=== PATIENT | female | born 1965 | race Caucasian/White ===

== ENCOUNTER 2017-04-10 12:16 | Emergency (ER) | payer MEDICAID ==
[2017-04-10 12:20] VITALS: BP 153/90
[2017-04-10] MEDS ORDERED: RABIES VACCINE (PCEC)/PF 2.5 UNIT/1 ML KIT IM ONE (12:28)
[2017-04-10] MEDS ORDERED: OXYCODONE-ACETAMINOPHEN 5-325 MG TABLET PO ONE (12:28)
[2017-04-10] MEDS ORDERED: RABIES IMMUNE GLOBULIN INJ/PF 300 UNIT/2 ML SDV IM ONE (12:28)
[2017-04-10] MEDS ORDERED: ONDANSETRON 4 MG TAB.RAPDIS SL ONE (12:28)
[2017-04-10] MEDS ORDERED: DIPH/PERTUSS(ACELL)/TETANUS VAC/PF 0.5 ML SYR (>=10YO) IM ONE (12:28)
[2017-04-10] MEDS ORDERED: AMOXICILLIN TR/POT CLAVULANATE 500-125 MG TAB PO ONE (12:35)
--- NOTE | 2017-04-10 12:35 | ER Document Report ---
ED Animal Bite - General Chief Complaint: Cat Bite Stated Complaint: CAT ATTACK Time Seen by Provider: 04/10/17 12:22 Mode of Arrival: Ambulatory Information source: Patient TRAVEL OUTSIDE OF THE [place] IN LAST 30 DAYS: No - HPI Patient complains to provider of: Cat bite Location of injury: RLE Severity of injury: Bitten Onset: Other - Quality of pain: Achy, Pressure Pain Level: 4 Severity: Moderate Context of attack: "Unprovoked" attack Type of animal: Cat Appearance of animal: Unknown Notes: This 51-year-old female who presents to the emergency room complaining of Bite to the right lower leg that occurred to go, over the past 3 days it has become more red, swollen, painful, with a small amount of serous drainage, the cat was a stray and unknown to patient, patient's last tetanus shot is unknown - Related Data Allergies/Adverse Reactions: No Known Allergies Allergy (Verified 04/10/17 12:20) Past Medical History - General Information source: Patient - Social History Smoking Status: Current Every Day Smoker Family History: Reviewed & Not Pertinent Patient has suicidal ideation: No Patient has homicidal ideation: No Pulmonary Medical History: Denies: Hx Tuberculosis Neurological Medical History: Reports: Hx Seizures Endocrine Medical History: Reports: Hx Diabetes Mellitus Type 2, Hx Hypothyroidism Renal/ Medical History: Denies: Hx Peritoneal Dialysis GI Medical History: Reports: Hx Ulcer Psychiatric Medical History: Reports: Hx Anxiety, Hx Depression Past Surgical History: Reports: Hx Appendectomy, Hx Cholecystectomy, Hx Tubal Ligation - Immunizations Hx Diphtheria, Pertussis, Tetanus Vaccination: Yes Hx Pneumococcal Vaccination: 07/17/14 Review of Systems - Review of Systems Constitutional: No symptoms reported EENT: No symptoms reported Cardiovascular: No symptoms reported Respiratory: No symptoms reported Gastrointestinal: Nausea Genitourinary: No symptoms reported Female Genitourinary: No symptoms reported Musculoskeletal: No symptoms reported Skin: See HPI Hematologic/Lymphatic: No symptoms reported Neurological/Psychological: No symptoms reported -: Yes All other systems reviewed and negative Physical Exam - Vital signs Vitals: Temp Pulse Resp BP Pulse Ox 97.7 F 99 22 H 153/90 H 99 04/10/17 12:18 04/10/17 12:18 04/10/17 12:18 04/10/17 12:18 04/10/17 12:18 - Notes Notes: - General General appearance: Appears well, Alert In distress: None - HEENT Head: Normocephalic, Atraumatic Eyes: Normal Conjunctiva: Normal Extraocular movements intact: Yes Eyelashes: Normal Pupils: PERRL - Respiratory Respiratory status: No respiratory distress - Cardiovascular Rhythm: Regular - Abdominal Inspection: Normal - Back Back: Normal - Extremities General upper extremity: Normal inspection General lower extremity: Right lower extremity with erythema and swelling on the lateral portion just proximal to the ankle, tender to palpate, small amount of serous drainage coming from puncture wound centrally located, mild swelling over the lateral malleolus, distal sensation and motor is intact with 2+ DP pulses - Neurological Neuro grossly intact: Yes Orientation: AAOx4 [place] Coma Scale Eye Opening: Spontaneous [place] Coma Scale Verbal: Oriented Laurita Coma Scale Motor: Obeys Commands [place] Coma Scale Total: 15 - Psychological Associated symptoms: Normal affect, Normal mood - Skin Skin Temperature: Warm Skin Moisture: Dry Skin Color: Normal Course - Re-evaluation Re-evalutation: 04/10/17 12:56 It was provided with pain medication, antibiotics, rabies vaccine and immunoglobulin, as well as information for follow-up and wound care, patient was given a schedule of nursing visits to come back for completion of rabies vaccination series, advised to return if symptoms worsen, patient acknowledges understanding and agreement with this plan - Vital Signs Vital signs: Temp Pulse Resp BP Pulse Ox 97.7 F 99 22 H 153/90 H 99 04/10/17 12:18 04/10/17 12:18 04/10/17 12:18 04/10/17 12:18 04/10/17 12:18 Discharge - Discharge Clinical Impression: Cat bite of right lower leg Qualifiers: Encounter type: initial encounter Qualified Code(s): S81.851A - Open bite, right lower leg, initial encounter; W55.01XA - Bitten by cat, initial encounter Condition: Stable Disposition: HOME, SELF-CARE Instructions: Animal Bites ([facility]), Rabies Prophyllaxis ([facility]), Dressing Instructions for Open Wounds ([facility]), Wound Infection ([facility]), Oral Narcotic Medication ([facility]) Additional Instructions: Follow up with your primary care provider in one to 2 days. Return to the emergency room immediately if symptoms worsen or any additional concerns. Wound clean and covered. Rinsed twice a day with warm water and soap, apply antibiotic ointment and a clean dressing. Return to the emergency room for completion of rabies series vaccinations as directed. Prescriptions: Amox Tr/Potassium Clavulanate [Augmentin 875-125 Tablet] 1 tab PO BID #20 tablet Hydrocodone/Acetaminophen [Hydrocodon-Acetaminophen 5-325] 1 each PO Q6 #20 tablet Forms: Smoking Cessation Education
== END 2017-04-10 13:19 | disposition home or self-care (01) ==
LOC: ER 12:16
DX: S81.851A Open bite, right lower leg, initial encounter (principal); W55.01XA Bitten by cat, initial encounter; Z20.3 Contact with and (suspected) exposure to rabies; F17.200 Nicotine dependence, unspecified, uncomplicated; E11.9 Type 2 diabetes mellitus without complications; E03.9 Hypothyroidism, unspecified; Z90.49 Acquired absence of other specified parts of digestive tract; Z98.51 Tubal ligation status; Z23 Encounter for immunization
CPT/HCPCS: 99283; 96372; 90471; 90675; 90376; J3490; S0119

== ENCOUNTER 2017-09-07 15:04 | Emergency (ER) | payer MEDICAID ==
[2017-09-07] MEDS ORDERED: ONDANSETRON HCL INJ/PF 4 MG/2 ML SDV IV ONE (15:49)
[2017-09-07] MEDS ORDERED: NORMAL SALINE 1000 ML 1,000 ML IV ONE (15:49)
--- NOTE | 2017-09-07 15:50 | ER Document Report ---
ED Medical Screen (RME) - General Chief Complaint: Chest Pain Stated Complaint: CHEST PAIN Time Seen by Provider: 09/07/17 15:48 Notes: pt said she had OH with stent about 20yrs ago. Now has n,v and cp that started this am. states it feels very similar to previous OH pain. TRAVEL OUTSIDE OF THE U.S. IN LAST 30 DAYS: No - Related Data Allergies/Adverse Reactions: No Known Allergies Allergy (Verified 09/07/17 15:09) Past Medical History - Social History Frequency of alcohol use: None Drug Abuse: None - Past Medical History Cardiac Medical History: Reports: Hx Heart Attack Pulmonary Medical History: Denies: Hx Tuberculosis Neurological Medical History: Reports: Hx Seizures - History Endocrine Medical History: Reports: Hx Diabetes Mellitus Type 2 - Diet Controlled, Hx Hypothyroidism Renal/ Medical History: Denies: Hx Peritoneal Dialysis GI Medical History: Reports: Hx Ulcer Psychiatric Medical History: Reports: Hx Anxiety, Hx Depression - History Past Surgical History: Reports: Hx Appendectomy, Hx Cardiac Catheterization - Stent Placement, Hx Cholecystectomy, Hx Tubal Ligation - Immunizations Hx Diphtheria, Pertussis, Tetanus Vaccination: Yes Physical Exam - Vital signs Vitals: Temp Pulse BP Pulse Ox 98.0 F 103 H 154/87 H 98 09/07/17 15:10 09/07/17 15:10 09/07/17 15:10 09/07/17 15:10 Course - Vital Signs Vital signs: Temp Pulse Resp BP Pulse Ox 98.0 F 103 H 154/87 H 98 09/07/17 15:10 09/07/17 15:10 09/07/17 15:10 09/07/17 15:10
[2017-09-07 16:18] LABS: ABSOLUTE BASOPHILS # (AUTO) 0.1 10^3/uL (0.0-0.2); ABSOLUTE LYMPHOCYTES (AUTO) 1.9 10^3/uL (0.5-4.7); ABSOLUTE MONOCYTES (AUTO) 0.5 10^3/uL (0.1-1.4); ABSOLUTE NEUT (AUTO) 11.5 10^3/uL (1.7-8.2); BASOPHILS % (AUTO) 1.1 % (0-2); HEMATOCRIT 49.6 % (36.0-47.0); HEMOGLOBIN 16.9 g/dL (12.0-15.5); HGB HCT DIFFERENCE 1.1; LYMPHOCYTES % (AUTO) 13.3 % (13-45); MEAN CORPUSCULAR HEMOGLOBIN 30.9 pg (27.0-33.4); MEAN CORPUSCULAR VOLUME 91 fl (80-97); MONOCYTES % (AUTO) 3.4 % (3-13); RED BLOOD COUNT 5.46 10^6/uL (3.72-5.28); RED CELL DISTRIBUTION WIDTH 14.5 % (11.5-14.0); SEGMENTED NEUTROPHILS % (AUTO) 82.2 % (42-78)
--- NOTE | 2017-09-07 16:23 | EKG REPORT ---
SEVERITY:- NORMAL ECG - SINUS RHYTHM : Confirmed by: Krunal Jeffrey 07-Sep-2017 16:22:47
[2017-09-07] MEDS ORDERED: MORPHINE SULFATE 10 MG/ML INJ IV ONE ×2 (16:25→19:13)
--- NOTE | 2017-09-07 16:27 | ER Document Report ---
ED General <FRANK LEVIN - Last Filed: 09/08/17 03:44> - General Mode of Arrival: Ambulatory Information source: Patient TRAVEL OUTSIDE OF THE [place] IN LAST 30 DAYS: No - HPI Onset: Other - Nausea and vomiting since 4:00 this morning, chest pain since 2 PM Onset/Duration: Persistent Quality of pain: Sharp Pain Level: 5 Associated symptoms: Chest pain, Productive cough, Nausea, Vomiting. denies: Diarrhea, Fever, Sore throat Exacerbated by: Denies Relieved by: Denies Similar symptoms previously: Yes Recently seen / treated by doctor: No <RINKU SALGADO - Last Filed: 09/08/17 14:06> - General Chief Complaint: Chest Pain Stated Complaint: CHEST PAIN Time Seen by Provider: 09/07/17 15:48 Notes: Patient presents complaining of abdominal pain with nausea and vomiting that started around 4:00 this morning. Patient states she has vomited numerous times and has been unable to keep any oral medications or liquids down today. Patient denies any diarrhea. Patient does report cough that is been occasionally productive for the past week. Patient denies any fever or urinary symptoms. Patient states that around 2 PM today she developed right-sided chest pain which prompted her visit to the ER today. Patient states that she does have a previous history of PR 20 years ago and was concerned that her symptoms felt similar to this. (RINKU SALGADO) - Related Data Allergies/Adverse Reactions: No Known Allergies Allergy (Verified 09/07/17 15:09) Past Medical History - General Information source: Patient - Social History Smoking Status: Current Every Day Smoker Frequency of alcohol use: None Drug Abuse: None Occupation: None Lives with: Family Family History: Reviewed & Not Pertinent - Past Medical History Cardiac Medical History: Reports: Hx Heart Attack, Hx Hypertension - Diet controlled Pulmonary Medical History: Denies: Hx Tuberculosis Endocrine Medical History: Reports: Hx Diabetes Mellitus Type 2 - Diet Controlled, Hx Hypothyroidism Renal/ Medical History: Denies: Hx Peritoneal Dialysis GI Medical History: Reports: Hx Gastroesophageal Reflux Disease, Hx Ulcer Musculoskeltal Medical History: Reports Hx Arthritis, Reports Other - Chronic back pain Psychiatric Medical History: Reports: Hx Anxiety, Hx Depression - History Past Surgical History: Reports: Hx Appendectomy, Hx Cardiac Catheterization - Stent Placement, Hx Cholecystectomy, Hx Tubal Ligation - Immunizations Hx Diphtheria, Pertussis, Tetanus Vaccination: Yes Hx Pneumococcal Vaccination: 07/17/14 <RINKU SALGADO - Last Filed: 09/08/17 14:06> Review of Systems - Review of Systems Constitutional: No symptoms reported. denies: Fever, Recent illness EENT: No symptoms reported Cardiovascular: Chest pain. denies: Syncope, Dizziness Respiratory: Cough Gastrointestinal: Abdominal pain, Nausea, Vomiting, Poor fluid intake. denies: Diarrhea, Black stools Genitourinary: No symptoms reported. denies: Dysuria, Flank pain Female Genitourinary: No symptoms reported Musculoskeletal: Back pain - chronic Skin: No symptoms reported Hematologic/Lymphatic: No symptoms reported Neurological/Psychological: No symptoms reported <RINKU SALGADO - Last Filed: 09/08/17 14:06> Physical Exam <FRANK LEVIN - Last Filed: 09/08/17 03:44> - General General appearance: Alert In distress: Mild - HEENT Head: Normocephalic, Atraumatic Eyes: Normal Conjunctiva: Normal Nasal: Normal Mouth/Lips: Normal Mucous membranes: Dry Pharynx: Normal Neck: Normal, Supple. No: Lymphadenopathy - Respiratory Respiratory status: No respiratory distress Chest status: Tender, Pain with cough Breath sounds: Nonproductive cough, Rhonchi Chest palpation: Tender - Right anterior chest wall tenderness with palpation - Cardiovascular Rhythm: Regular Heart sounds: S1 appreciated, S2 appreciated Murmur: No - Abdominal Inspection: Normal Distension: No distension Bowel sounds: Normal Tenderness: Tender - Epigastric, Guarding Organomegaly: No organomegaly - Back Back: Normal, Nontender. No: CVA tenderness - Extremities General upper extremity: Normal inspection, Nontender, Normal ROM General lower extremity: Normal inspection, Nontender, Normal ROM - Neurological Neuro grossly intact: Yes Cognition: Normal [place] Coma Scale Eye Opening: Spontaneous [place] Coma Scale Verbal: Oriented [place] Coma Scale Motor: Obeys Commands [place] Coma Scale Total: 15 - Psychological Associated symptoms: Normal affect, Normal mood - Skin Skin Temperature: Warm Skin Moisture: Dry Skin Color: Normal <RINKU SALGADO - Last Filed: 09/08/17 14:06> - Vital signs Vitals: Temp Pulse BP Pulse Ox 98.0 F 103 H 154/87 H 98 09/07/17 15:10 09/07/17 15:10 09/07/17 15:10 09/07/17 15:10 - General Notes: Patient cachectic looking (RINKU SALGADO) Course - Laboratory Result Diagrams: 09/08/17 00:25 09/07/17 16:01 <FRANK LEVIN - Last Filed: 09/08/17 03:44> - Laboratory Result Diagrams: 09/08/17 00:25 09/07/17 16:01 - Diagnostic Test Radiology reviewed: Reports reviewed <RINKU SALGADO - Last Filed: 09/08/17 14:06> - Re-evaluation Re-evalutation: Patient drank some of the contrast, about 1 bottle, then she vomited. She did keep down for several minutes. She states she cannot drink anymore without vomiting. Mild QT prolongation on EKG. There is one inverted lateral lead on repeat EKG but no consecutive inversions or specific ischemic changes. Patient was sent to CAT scan after [address] Davis in ED, asking about potential surgical cases, he did evaluate the patient at bedside, he did review the EKG images, his suspicion is gastritis/ peptic ulcer disease and recommendation is an endoscopy but does not recommend any surgical management at this time. Cat scan read by radiology showing periumbilical hernia with no contained bowel loops, no evidence of incarceration , no other abnormalities. Concerned because of elevated troponin, will repeat this. Patient is not having any chest pain, has intermittent epigastric pain and she did vomit again with trace blood but no gross hematemesis. Type and screen was performed, coagulation studies performed, Protonix placed on continual drip, patient has been getting fluid hydration. Troponin cycled and is now above PR cut off. Aspirin and anticoagulation held because of upper GI bleeding. Discussed with Dr. David. Discussed Dr. Soto admission to the hospital, unfortunately because of patient's rising troponin in setting of patient with history of stents recommendation is to transfer to tertiary care center. Spoke with patient, she prefers either [place] or [facility], states she lives close to [place]. Spoke with Ajay Cruz, they have a minimum of 24 hour wait time and are at maximum capacity at this time. Spoke with patient again, she states she would prefer [place]. Spoke with Dr. Mcallister, patient will be accepted at [facility]. Patient states agreement with this plan. 09/08/17 02:30 Patient reevaluated again, she is not complaining of any chest pain, she does have some intermittent epigastric and mid abdominal pain. 09/08/17 03:44 Transport is here, patient reporting to me that she no longer has her nitroglycerin paste on and it was on her right chest. I could not find it on examination. A replacement was placed. Otherwise no change, stable vital signs , stable for transport. (FRANK LEVIN) 09/07/17 17:07 Patient returned to room from x-ray. Patient states chest pain at this time is resolved although continues with epigastric tenderness. Family at bedside and updated regarding patient's care. Patient continues to complain of nausea. Nurse at bedside to administer antiemetic medication. 09/07/17 18:00 pt continues with epigastric abd pain with nausea and vomiting. Additional medications ordered. Pt reports that pain to right chest comes and goes, although epigastric pain is persistent. 09/07/17 19:14 Patient reports that chest pain has now resolved but that epigastric abdominal pain has worsened. Bedside report and handout given to Frank TAPIA. Additional medication ordered. Nurse at bedside attempting to restart IV after patient accidentally pulled IV out. (RINKU SALGADO) - Vital Signs Vital signs: Temp Pulse Resp BP Pulse Ox 98.4 F 103 H 17 141/78 H 96 09/08/17 03:45 09/07/17 15:10 09/08/17 03:45 09/08/17 03:45 09/08/17 03:45 - Laboratory Laboratory results interpreted by me: 09/07/17 09/07/17 09/07/17 16:01 16:01 17:03 WBC 14.0 H RBC 5.46 H Hgb 16.9 H Hct 49.6 H RDW 14.5 H Seg Neutrophils % 82.2 H Absolute Neutrophils 11.5 H APTT Creatinine 0.50 L Glucose 132 H Lipase 20.5 L Urine Protein 100 H Urine Ketones 20 H Urine Blood SMALL H Urine Urobilinogen 4.0 H 09/08/17 09/08/17 00:25 00:25 WBC 14.9 H RBC Hgb Hct RDW 14.2 H Seg Neutrophils % Absolute Neutrophils APTT 36.8 H Creatinine Glucose Lipase Urine Protein Urine Ketones Urine Blood Urine Urobilinogen Discharge <FRANK LEVIN - Last Filed: 09/08/17 03:44> <RINKU SALGADO - Last Filed: 09/08/17 14:06> - Discharge Clinical Impression: Upper GI bleed, Elevated troponin Intractable vomiting Qualifiers: Vomiting type: unspecified Nausea presence: with nausea Qualified Code(s): R11.2 - Nausea with vomiting, unspecified Chest pain Qualifiers: Chest pain type: unspecified Qualified Code(s): R07.9 - Chest pain, unspecified Condition: Stable Disposition: [facility]
[2017-09-07 16:37] LABS: ALANINE AMINOTRANSFERASE 22 U/L (9-52); ALBUMIN 4.2 g/dL (3.5-5.0); ALKALINE PHOSPHATASE 117 U/L (38-126); ANION GAP 16 (5-19); ASPARTATE AMINO TRANSFERASE 15 U/L (14-36); BILIRUBIN,DIRECT 0.3 mg/dL (0.0-0.4); BILIRUBIN,TOTAL 0.5 mg/dL (0.2-1.3); BLOOD UREA NITROGEN 10 mg/dL (7-20); CALCIUM 9.6 mg/dL (8.4-10.2); CARBON DIOXIDE 23 mmol/L (22-30); CHLORIDE 103 mmol/L (98-107); GLUCOSE 132 mg/dL (75-110); LIPASE 20.5 U/L (23-300); POTASSIUM 3.7 mmol/L (3.6-5.0); SODIUM 141.5 mmol/L (137-145); TOTAL PROTEIN 7.1 g/dL (6.3-8.2)
--- NOTE | 2017-09-07 17:06 | RADIOLOGY REPORT (SQ) ---
EXAM DESCRIPTION: CHEST PA/LAT COMPLETED DATE/TIME: 09/07/2017 4:57 pm REASON FOR STUDY: pain COMPARISON: Chest film 08/22/2013 EXAM PARAMETERS: NUMBER OF VIEWS: two views TECHNIQUE: Digital Frontal and Lateral radiographic views of the chest acquired. RADIATION DOSE: NA LIMITATIONS: none FINDINGS: LUNGS AND PLEURA: Lungs are hyperinflated and hyperlucent from obstructive disease. No pleural effusion. No pneumothorax. No pulmonary nodules. MEDIASTINUM AND HILAR STRUCTURES: No masses or contour abnormalities. HEART AND VASCULAR STRUCTURES: Heart normal size. No evidence for failure. BONES: Osteopenic. HARDWARE: None in the chest. OTHER: No other significant finding. IMPRESSION: Lungs hyperinflated and hyperlucent but free of focal infiltrates. TECHNICAL DOCUMENTATION: JOB ID: [id number] [employer]- All Rights Reserved
[2017-09-07] MEDS: NITROGLYCERIN 0.4 MG/TAB 25 TAB/BOTTLE SL PRN ×2 (17:27→18:30)
[2017-09-07 17:39] LABS: APPEARANCE,URINE SLIGHTLY-CLOUDY; BILIRUBIN,URINE NEGATIVE (NEGATIVE); GLUCOSE, URINE NEGATIVE (NEGATIVE); KETONES,URINE 20 mg/dL (NEGATIVE); LEUKOCYTE ESTERASE,URINE NEGATIVE (NEGATIVE); NITRITE,URINE NEGATIVE (NEGATIVE); PROTEIN,URINE 100 mg/dL (NEGATIVE)
[2017-09-07] MEDS ORDERED: NORMAL SALINE 1000 ML 1,000 ML IV PRN (17:48)
[2017-09-07] MEDS ORDERED: PROMETHAZINE HCL 25 MG SUPP.RECT PR ONE (17:48)
[2017-09-07] MEDS ORDERED: IPRATROPIUM/ALBUTEROL 0.5-2.5 MG/3 ML AMPUL NEB ONE (17:57)
[2017-09-07] MEDS ORDERED: PANTOPRAZOLE SODIUM 40 MG VIAL IV ONE (18:39)
[2017-09-07] MEDS ORDERED: NITROGLYCERIN 2% OINTMENT 1 GM PACKET TP ONE (19:12)
--- NOTE | 2017-09-08 00:01 | EKG REPORT ---
SEVERITY:- ABNORMAL ECG - SINUS RHYTHM PROLONGED QT INTERVAL : Confirmed by: Krunal Jeffrey 08-Sep-2017 00:00:49
--- NOTE | 2017-09-08 00:02 | RADIOLOGY REPORT (SQ) ---
EXAM DESCRIPTION: CT ABD/PELVIS WITH IV ORAL COMPLETED DATE/TIME: 09/07/2017 11:02 pm REASON FOR STUDY: upper abd pain, vomiting COMPARISON: 8.26.14. TECHNIQUE: CT scan of the abdomen and pelvis performed using helical scanning technique with dynamic intravenous contrast injection. No oral contrast. Images reviewed with lung, soft tissue, and bone windows. Reconstructed coronal and sagittal MPR images reviewed. Delayed images for evaluation of the urinary system also acquired. All images stored on PACS. All CT scanners at this facility use dose modulation, iterative reconstruction, and/or weight based d osing when appropriate to reduce radiation dose to as low as reasonably achievable (ALARA). [facility]: Dose Right [facility]: CareDose [facility]: Dose Right [facility]: Teradose 4D [facility]: Evolve IP CONTRAST TYPE AND DOSE: contrast/concentration: Isovue 370.00 mg/ml; Total Contrast Delivered: 51.0 ml; Total Saline Delivered: 65.0 ml RENAL FUNCTION: Creatinine 0.5 RADIATION DOSE: Up-to-date CT equipment and radiation dose reduction techniques were employed. CTDIv ol: 4.9 - 5.8 mGy. DLP: 497 mGy-cm.. LIMITATIONS: No oral contrast. FINDINGS: LOWER CHEST: No significant findings. No nodules or infiltrates. LIVER: Normal size. No masses. Prominent ductal system ; prior cholecystectomy. SPLEEN: Normal size. No focal lesions. PANCREAS: No masses. No significant calcifications. No adjacent inflammation or peripancreatic fluid collections. Pancreatic duct not dilated. GALLBLADDER: Surgically absent. ADRENAL GLANDS: No significant masses or asymmetry. RIGHT KIDNEY AND URETER: No solid masses. No significant calcifications. No hydronephrosis or hyd roureter. LEFT KIDNEY AND URETER: No solid masses. No significant calcifications. No hydronephrosis or hydr oureter. AORTA AND VESSELS: No aneurysm. No dissection. Renal arteries, SMA, celiac without stenosis. Atheros clerosis. RETROPERITONEUM: No retroperitoneal adenopathy, hemorrhage or masses. BOWEL AND PERITONEAL CAVITY: No masses or inflammatory changes. No free fluid or peritoneal masses. APPENDIX: Surgically absent. PELVIS: No mass. No free fluid. Normal bladder. ABDOMINAL WALL: No masses. 1.5 cm umbilical fat only hernia. BONES: No significant or acute findings. Moderate disc desiccation. OTHER: No other significant finding. IMPRESSION: NO SIGNIFICANT OR ACUTE FINDING IN THE ABDOMEN OR PELVIS ON CT SCAN WITH IV CONTRAST. L imitation. TECHNICAL DOCUMENTATION: JOB ID: [id number] Quality ID # [id number]: Final reports with documentation of one or more dose reduction techniques (e.g., Au tomated exposure control, adjustment of the mA and/or kV according to patient size, use of iterative reconstruction technique) 2010 [employer]- All Rights Reserved
[2017-09-08 00:43] LABS: PROTHROMBIN TIME 13.6 SEC (11.4-15.4)
[2017-09-08 00:44] LABS: PARTIAL THROMBOPLASTIN TIME 36.8 SEC (23.5-35.8)
--- NOTE | 2017-09-08 01:02 | CONSULTATION REPORT E ---
Consultation Report NAME: PATY MORLEY : 1965 AGE: 52Y DATE: 09/07/2017 TO: JOHN NAVAS M.D. FROM: BLAYNE BOYKIN M.D. Requesting Physician REASON FOR ADMISSION: Intractable nausea, vomiting, and abdominal pain. HISTORY OF PRESENT ILLNESS: This 52-year-old female was in her usual state of health until approximately 36 hours ago, when she developed diffuse midabdominal pain with intractable vomiting which was at first clear and then became bilious. This lasted for several hours, and patient then improved spontaneously and was doing well until approximately 20 hours ago, or 4:00 this morning, when she developed recurrence of her diffuse abdominal pain with intractable vomiting several times. The patient states that she had a normal bowel movement and has passed gas but has had continuous pain, nausea, and vomiting since this morning. The presented to the emergency room and was found to be in mild distress and was evaluated in the ER. On physical exam she was found to have a mildly tender abdomen with acute tenderness, but with distraction the patient was found to have no guarding or rebound. Bowel sounds were present. The patient's laboratory data was unremarkable, but her CT scan showed only a significant amount of stool in the colon, but no other significant findings on CT scan. Surgical evaluation was requested, and on physical examination in the ER by me, the patient was noted to have a nonsurgical abdomen, although she has some diffuse tenderness without guarding or rebound. There is no organomegaly or masses. My impression is that this patient may have some either gastritis and may need upper endoscopy, as she has had previous gastric ulcers in the past. The patient is to be admitted to the medicine service. PAST MEDICAL HISTORY: She has a history of cardiac stents, thyroid disorder, and hypertension. PAST SURGICAL HISTORY: The patient is status post open cholecystectomy over 20 years ago. The patient has also had an appendectomy. PHYSICAL EXAMINATION: GENERAL: Physical examination reveals a 52-year-old female who appears older than her stated age, who is fairly nervous, somewhat disheveled, who is in mild distress. HEENT: There is no conjunctival pallor or scleral icterus. NECK: Supple. LUNGS: Clear. CARDIOVASCULAR: The pulse is regular. ABDOMEN: Scaphoid with poor skin turgor, suggesting dehydration. There is diffuse tenderness but no guarding, no rebound, no rigidity, no evidence of an acute abdomen. Bowel sounds are present. EXTREMITIES: Full range of motion. LABORATORY DATA: Has been reviewed. IMPRESSION: The patient has abdominal pain with intractable nausea and vomiting that may represent gastritis. RECOMMENDATION: I recommend that the patient undergo esophagogastroduodenoscopy as part of her workup, as her CT scan has not revealed any pathology. DICTATING PHYSICIAN: JOHN NAVAS M.D. [id number] PHY#: [id number] ID: [id number] JOB#: [id number] ACCT: [id number] cc:JOHN NAVAS M.D. >
[2017-09-08] MEDS ORDERED: PANTOPRAZOLE SODIUM 40 MG VIAL IV PRN (01:25)
[2017-09-08] MEDS ORDERED: MORPHINE SULFATE 10 MG/ML INJ IV ONE (01:45)
[2017-09-08 02:14] LABS: HEMATOCRIT 41.2 % (36.0-47.0); HGB HCT DIFFERENCE 0.2; MEAN CORPUSCULAR HEMOGLOBIN 30.7 pg (27.0-33.4); MEAN CORPUSCULAR HGB CONC 33.6 g/dL (32.0-36.0); MEAN CORPUSCULAR VOLUME 92 fl (80-97); RED BLOOD COUNT 4.51 10^6/uL (3.72-5.28); RED CELL DISTRIBUTION WIDTH 14.2 % (11.5-14.0); WHITE BLOOD COUNT 14.9 10^3/uL (4.0-10.5)
[2017-09-08 02:22] LABS: HEMOGLOBIN 13.8 g/dL (12.0-15.5)
[2017-09-08] MEDS ORDERED: NITROGLYCERIN 2% OINTMENT 1 GM PACKET TP ONE (03:44)
[2017-09-08 04:43] VITALS: BP 141/78
== END 2017-09-08 04:05 | disposition short-term general hospital (02) ==
LOC: ER 15:04
DX: K92.2 Gastrointestinal hemorrhage, unspecified (principal); K42.9 Umbilical hernia without obstruction or gangrene; R07.9 Chest pain, unspecified; R74.8 Abnormal levels of other serum enzymes; R05 Cough; R10.13 Epigastric pain; R10.816 Epigastric abdominal tenderness; R11.2 Nausea with vomiting, unspecified; I25.2 Old myocardial infarction; I10 Essential (primary) hypertension; E11.9 Type 2 diabetes mellitus without complications; M54.9 Dorsalgia, unspecified; G89.29 Other chronic pain; F17.200 Nicotine dependence, unspecified, uncomplicated; Z95.5 Presence of coronary angioplasty implant and graft
CPT/HCPCS: 93005; 96376; 94640; 99285; 96361; 96375; 96365; 96366; 86900; 86901; 36415; 86850; 83690; 85025; 85027; 85610; 85730; 82271; 80053; 81001; 84484; 71020; 74177; 93010; J3490 ×4; J2270 ×2; S0164 ×2; J2405; J7030; J7620

== ENCOUNTER → 2018-01-31 | Outpatient (CLI) | payer MEDICAID ==
--- NOTE | 2018-01-31 14:44 | RADIOLOGY REPORT (SQ) ---
EXAM DESCRIPTION: CHEST PA/LAT COMPLETED DATE/TIME: 01/31/2018 2:05 pm REASON FOR STUDY: F17.200 NICOTINE DEPENDENCE, UNSPECIFIED, UNCOMPLICATED R63.4 ABNORMAL WEIG COMPARISON: 09/07/2017 EXAM PARAMETERS: NUMBER OF VIEWS: two views TECHNIQUE: Digital Frontal and Lateral radiographic views of the chest acquired. RADIATION DOSE: NA LIMITATIONS: none FINDINGS: LUNGS AND PLEURA: Inflation of the lungs, attenuated blood vessels and flattening of the diaphragms, stable findings, findings suggest COPD. No acute pulmonary consolidation. No pneumothor ax or pleural effusion. MEDIASTINUM AND HILAR STRUCTURES: No masses or contour abnormalities. HEART AND VASCULAR STRUCTURES: Heart normal size. No evidence for failure. BONES: No acute findings. HARDWARE: None in the chest. OTHER: No other significant finding. IMPRESSION: 1 No significant interval changes since the prior examination dated 09/07/2017. Finding s of COPD. No acute pulmonary findings. TECHNICAL DOCUMENTATION: JOB ID: [id number] [employer]- All Rights Reserved Reading location - IP/workstation name: [email or web address]
== END ==
LOC: RAD 13:45
PROVIDERS: ATTEND Surgery
DX: F17.200 Nicotine dependence, unspecified, uncomplicated (principal); R63.4 Abnormal weight loss; R10.9 Unspecified abdominal pain; J44.9 Chronic obstructive pulmonary disease, unspecified
CPT/HCPCS: 71046

== ENCOUNTER 2018-05-04 13:55 | Emergency (ER) | payer MEDICARE, MEDICAID ==
--- NOTE | 2018-05-04 14:37 | ER Document Report ---
ED General - General Chief Complaint: Ankle Pain Stated Complaint: KNEE/ANKLE PAIN Time Seen by Provider: 05/04/18 14:29 TRAVEL OUTSIDE OF THE [place] IN LAST 30 DAYS: No - HPI Patient complains to provider of: Right ankle right knee pain Notes: Patient coming in for evaluation of right ankle right knee pain. Patient states she fell in a hole just prior to arrival. Patient states she walked to a local urgent care who then called her. Patient is tearful upon my examination. Patient does have tennis shoes on I am able to remove the shoes with no signs of any obvious trauma patient otherwise denies - Related Data Allergies/Adverse Reactions: No Known Allergies Allergy (Verified 05/04/18 13:58) Past Medical History - Social History Smoking Status: Current Every Day Smoker Chew tobacco use (# tins/day): No Frequency of alcohol use: None Drug Abuse: None Family History: Reviewed & Not Pertinent Patient has suicidal ideation: No Patient has homicidal ideation: No - Past Medical History Cardiac Medical History: Reports: Hx Heart Attack, Hx Hypertension - Diet controlled Pulmonary Medical History: Denies: Hx Tuberculosis Neurological Medical History: Reports: Hx Seizures - History Endocrine Medical History: Reports: Hx Diabetes Mellitus Type 2 - Diet Controlled, Hx Hypothyroidism Renal/ Medical History: Denies: Hx Peritoneal Dialysis GI Medical History: Reports: Hx Gastroesophageal Reflux Disease, Hx Ulcer Musculoskeltal Medical History: Reports Hx Arthritis Psychiatric Medical History: Reports: Hx Anxiety, Hx Depression - History Past Surgical History: Reports: Hx Appendectomy, Hx Cardiac Catheterization - Stent Placement, Hx Cholecystectomy, Hx Tubal Ligation - Immunizations Hx Diphtheria, Pertussis, Tetanus Vaccination: Yes Hx Pneumococcal Vaccination: 07/17/14 Review of Systems - Review of Systems Constitutional: No symptoms reported EENT: No symptoms reported Cardiovascular: No symptoms reported Respiratory: No symptoms reported Gastrointestinal: No symptoms reported Genitourinary: No symptoms reported Female Genitourinary: No symptoms reported Musculoskeletal: Other - Ankle pain knee pain Skin: No symptoms reported Hematologic/Lymphatic: No symptoms reported Neurological/Psychological: No symptoms reported -: Yes All other systems reviewed and negative Physical Exam - Vital signs Vitals: Temp Pulse Resp BP Pulse Ox 99.2 F 101 H 18 121/83 99 05/04/18 14:14 05/04/18 14:14 05/04/18 14:14 05/04/18 14:14 05/04/18 14:14 Interpretation: Normal - General General appearance: Appears well, Alert - HEENT Head: Normocephalic, Atraumatic Eyes: Normal Pupils: PERRL - Respiratory Respiratory status: No respiratory distress Chest status: Nontender Breath sounds: Normal Chest palpation: Normal - Cardiovascular Rhythm: Regular Heart sounds: Normal auscultation Murmur: No - Abdominal Inspection: Normal Distension: No distension Bowel sounds: Normal Tenderness: Nontender Organomegaly: No organomegaly - Back Back: Normal, Nontender - Extremities General upper extremity: Normal inspection, Nontender, Normal color, Normal ROM , Normal temperature General lower extremity: Normal inspection, Tender - Tenderness palpation the proximal tibia on the anterior side almost at the tibial tuberosity. On the right. Left unaffected. Patient has diffuse tenderness to palpation of her ankle dorsalis pedis and posterior tibial are intact on the right mild edema bilateral lower extremities, Normal color, Normal ROM, Normal temperature - Neurological Neuro grossly intact: Yes Cognition: Normal Orientation: AAOx4 Laurita Coma Scale Eye Opening: Spontaneous Laurita Coma Scale Verbal: Oriented [place] Coma Scale Motor: Obeys Commands Laurita Coma Scale Total: 15 Speech: Normal Motor strength normal: LUE, RUE, LLE, RLE Sensory: Normal - Psychological Associated symptoms: Normal affect, Normal mood - Skin Skin Temperature: Warm Skin Moisture: Dry Skin Color: Normal Course - Re-evaluation Re-evalutation: 05/04/18 22:50 X-rays are negative for any acute bony injury more likely patient has possible sprain or strain patient was encouraged to use ice and heat along with Tylenol Motrin for pain control at home. Narcotic database shows the patient does monthly supply of oxycodone patient can take this for pain patient discharged home - Vital Signs Vital signs: Temp Pulse Resp BP Pulse Ox 97.5 F 85 18 114/62 98 05/04/18 15:51 05/04/18 15:51 05/04/18 15:51 05/04/18 15:51 05/04/18 15:51 Discharge - Discharge Clinical Impression: Knee pain, right Qualifiers: Chronicity: acute Qualified Code(s): M25.561 - Pain in right knee Ankle pain, right Qualifiers: Chronicity: acute Qualified Code(s): M25.571 - Pain in right ankle and joints of right foot Condition: Good Disposition: HOME, SELF-CARE Instructions: Chilo Wrap ([facility]), Ice & Elevation ([facility]), Sprained Ankle ([facility]), Sprained Knee ([facility]) Additional Instructions: Your x-rays are negative for any signs of acute fracture. Highly recommend she follow-up with your primary care physician will likely you have a knee and ankle sprain. Recommend continue your patient prescribed narcotic pain medication he may also take Tylenol and Motrin for your pain control if he received good pain relief with the lidocaine patch provided to you here in ER he can ask her pharmacist about [id number] lidocaine options. Please follow-up with your primary care physician in 3-5 days. Referrals: FAYE ANDERSON PA-C [NO LOCAL MD] - Follow up in 3-5 days
--- NOTE | 2018-05-04 15:20 | RADIOLOGY REPORT (SQ) ---
EXAM DESCRIPTION: KNEE RIGHT 3 VIEWS COMPLETED DATE/TIME: 05/04/2018 3:09 pm REASON FOR STUDY: fell in hole COMPARISON: 09/01/2011. NUMBER OF VIEWS: Three views. TECHNIQUE: AP, lateral, and sunrise patella radiographic images acquired of the right knee. LIMITATIONS: None. FINDINGS: MINERALIZATION: Normal. BONES: No acute fracture or dislocation. No worrisome bone lesions. JOINT: No effusion. SOFT TISSUES: No soft tissue swelling. No radio-opaque foreign body. OTHER: No other significant finding. IMPRESSION: NEGATIVE STUDY OF THE RIGHT KNEE. NO RADIOGRAPHIC EVIDENCE OF ACUTE INJURY. TECHNICAL DOCUMENTATION: JOB ID: [id number] [employer]- All Rights Reserved Reading location - IP/workstation name: [email or web address]
--- NOTE | 2018-05-04 15:20 | RADIOLOGY REPORT (SQ) ---
EXAM DESCRIPTION: ANKLE RIGHT COMPLETE COMPLETED DATE/TIME: 05/04/2018 3:09 pm REASON FOR STUDY: fell in hole COMPARISON: None. NUMBER OF VIEWS: Three views. TECHNIQUE: AP, lateral, and oblique radiographic images acquired of the right ankle. LIMITATIONS: None. FINDINGS: MINERALIZATION: Normal. BONES: No acute fracture or dislocation. No worrisome bone lesions. JOINTS: No effusions. SOFT TISSUES: No soft tissue swelling. No foreign body. OTHER: No other significant finding. IMPRESSION: NEGATIVE STUDY OF THE RIGHT ANKLE. NO RADIOGRAPHIC EVIDENCE OF ACUTE INJURY. TECHNICAL DOCUMENTATION: JOB ID: [id number] [employer]- All Rights Reserved Reading location - IP/workstation name: [email or web address]
[2018-05-04] MEDS ORDERED: LIDOCAINE 5% (700 MG) TRANSDERMAL ADH..PATCH TP ONE (15:36)
[2018-05-04 15:59] VITALS: BP 114/62
== END 2018-05-04 15:59 | disposition home or self-care (01) ==
LOC: ER 13:55
DX: M25.571 Pain in right ankle and joints of right foot (principal); M25.561 Pain in right knee; W17.2XXA Fall into hole, initial encounter; R60.0 Localized edema; I10 Essential (primary) hypertension; E11.9 Type 2 diabetes mellitus without complications; F17.200 Nicotine dependence, unspecified, uncomplicated; Z79.891 Long term (current) use of opiate analgesic
CPT/HCPCS: 99283

== ENCOUNTER 2018-11-24 19:39 | Emergency (ER) | payer MEDICARE, MEDICAID ==
[2018-11-24 20:43] LABS: ABSOLUTE LYMPHOCYTES (AUTO) 1.8 10^3/uL (0.5-4.7); ABSOLUTE MONOCYTES (AUTO) 0.3 10^3/uL (0.1-1.4); ABSOLUTE NEUT (AUTO) 3.7 10^3/uL (1.7-8.2); BASOPHILS % (AUTO) 0.8 % (0-2); EOSINOPHILS % (AUTO) 0.5 % (0-6); HEMATOCRIT 34.1 % (36.0-47.0); MEAN CORPUSCULAR HEMOGLOBIN 26.8 pg (27.0-33.4); MEAN CORPUSCULAR HGB CONC 32.2 g/dL (32.0-36.0); MEAN CORPUSCULAR VOLUME 83 fl (80-97); MONOCYTES % (AUTO) 4.4 % (3-13); PLATELET COUNT 274 10^3/uL (150-450); RED BLOOD COUNT 4.09 10^6/uL (3.72-5.28); RED CELL DISTRIBUTION WIDTH 16.6 % (11.5-14.0); SEGMENTED NEUTROPHILS % (AUTO) 63.3 % (42-78); TOTAL CELLS COUNTED % (AUTO) 100 %; WHITE BLOOD COUNT 5.9 10^3/uL (4.0-10.5)
--- NOTE | 2018-11-24 20:44 | RADIOLOGY REPORT (SQ) ---
EXAM DESCRIPTION: CHEST SINGLE VIEW COMPLETED DATE/TIME: 11/24/2018 8:30 pm REASON FOR STUDY: chest pain COMPARISON: None. EXAM PARAMETERS: NUMBER OF VIEWS: One view. TECHNIQUE: Single frontal radiographic view of the chest acquired. RADIATION DOSE: NA LIMITATIONS: None. FINDINGS: LUNGS AND PLEURA: Mild hyperexpansion of the lungs. No infiltrate, effusion, or mass. MEDIASTINUM AND HILAR STRUCTURES: No masses. Contour normal. HEART AND VASCULAR STRUCTURES: Heart normal in size. Normal vasculature. BONES: No acute findings. HARDWARE: None in the chest. OTHER: No other significant finding. IMPRESSION: Mild chronic lung changes with no acute cardiopulmonary findings. TECHNICAL DOCUMENTATION: JOB ID: [id number] [employer]- All Rights Reserved Reading location - IP/workstation name: [email or web address]
[2018-11-24 20:45] LABS: INTERNATIONAL RATION (INR) 1.03; PROTHROMBIN TIME 14.1 SEC (11.4-15.4)
--- NOTE | 2018-11-24 20:48 | RADIOLOGY REPORT (SQ) ---
EXAM DESCRIPTION: CT HEAD WITHOUT COMPLETED DATE/TIME: 11/24/2018 8:39 pm REASON FOR STUDY: fall COMPARISON: None. TECHNIQUE: Axial images acquired through the brain without intravenous contrast. Images reviewed wi th bone, brain and subdural windows. Additional sagittal and coronal reconstructions were generated. Images stored on PACS. All CT scanners at this facility use dose modulation, iterative reconstruction, and/or weight based d osing when appropriate to reduce radiation dose to as low as reasonably achievable (ALARA). [facility]: Dose Right [facility]: CareDose [facility]: Dose Right [facility]: Teradose 4D [facility]: SnapMD RADIATION DOSE: CT Rad equipment meets quality standard of care and radiation dose reduction techniq ues were employed. CTDIvol: 53.2 mGy. DLP: 991 mGy-cm. mGy. LIMITATIONS: None. FINDINGS: VENTRICLES: Normal size and contour. CEREBRUM: No masses. No hemorrhage. No midline shift. No evidence for acute infarction. Normal gra y/white matter differentiation. No areas of low density in the white matter. CEREBELLUM: No masses. No hemorrhage. No alteration of density. No evidence for acute infarction. EXTRAAXIAL SPACES: No fluid collections. No masses. ORBITS AND GLOBE: No intra- or extraconal masses. Normal contour of globe without masses. CALVARIUM: No fracture. PARANASAL SINUSES: No fluid or mucosal thickening. SOFT TISSUES: No mass or hematoma. OTHER: No other significant finding. IMPRESSION: NORMAL BRAIN CT WITHOUT CONTRAST. EVIDENCE OF ACUTE STROKE: NO. COMMENT: Quality ID # 436: Final reports with documentation of one or more dose reduction techniques (e.g., Automated exposure control, adjustment of the mA and/or kV according to patient size, use of iterative reconstruction technique) TECHNICAL DOCUMENTATION: JOB ID: [id number] [employer]- All Rights Reserved Reading location - IP/workstation name: [email or web address]
--- NOTE | 2018-11-24 20:51 | RADIOLOGY REPORT (SQ) ---
EXAM DESCRIPTION: CT CERVICAL SPINE WITHOUT COMPLETED DATE/TIME: 11/24/2018 8:39 pm REASON FOR STUDY: fall COMPARISON: None. TECHNIQUE: Axial images acquired through the cervical spine without intravenous contrast. Images re viewed with lung, soft tissue and bone windows. Reconstructed coronal and sagittal MPR images review ed. Images stored on PACS. All CT scanners at this facility use dose modulation, iterative reconstruction, and/or weight based d osing when appropriate to reduce radiation dose to as low as reasonably achievable (ALARA). [facility]: Dose Right [facility]: CareDose [facility]: Dose Right [facility]: Teradose 4D [facility]: [employer] RADIATION DOSE: CT Rad equipment meets quality standard of care and radiation dose reduction techniq ues were employed. CTDIvol: 9.7 mGy. DLP: 182 mGy-cm. mGy. LIMITATIONS: None. FINDINGS: ALIGNMENT: Anatomic. MINERALIZATION: Normal. VERTEBRAL BODIES: No fractures or dislocation. DISCS: Mild disc narrowing at C6-7. FACETS, LATERAL MASSES, POSTERIOR ELEMENTS: No fractures. No dislocation. No acute findings. HARDWARE: None in the spine. VISUALIZED RIBS: No fractures. LUNG APICES AND SOFT TISSUES: No significant or acute findings. OTHER: No other significant finding. IMPRESSION: Mild degenerative disc changes C6-7. No acute findings. TECHNICAL DOCUMENTATION: JOB ID: [id number] Quality ID # [id number]: Final reports with documentation of one or more dose reduction techniques (e.g., Au tomated exposure control, adjustment of the mA and/or kV according to patient size, use of iterative reconstruction technique) 2010 [employer]- All Rights Reserved Reading location - IP/workstation name: [email or web address]
[2018-11-24 20:58] LABS: ALANINE AMINOTRANSFERASE 17 U/L (9-52); ALBUMIN 2.8 g/dL (3.5-5.0); ALKALINE PHOSPHATASE 101 U/L (38-126); ANION GAP 5 (5-19); ASPARTATE AMINO TRANSFERASE 28 U/L (14-36); BLOOD UREA NITROGEN 15 mg/dL (7-20); CALCIUM 7.9 mg/dL (8.4-10.2); CARBON DIOXIDE 28 mmol/L (22-30); CHLORIDE 104 mmol/L (98-107); GLUCOSE 77 mg/dL (75-110); LIPASE 33.4 U/L (23-300); POTASSIUM 3.2 mmol/L (3.6-5.0); SODIUM 137.1 mmol/L (137-145); TOTAL PROTEIN 5.4 g/dL (6.3-8.2)
[2018-11-24 21:00] LABS: BILIRUBIN,TOTAL < 0.1 mg/dL (0.2-1.3)
[2018-11-24] MEDS ORDERED: MORPHINE SULFATE 10 MG/ML INJ IV ONE (21:20)
[2018-11-24] MEDS ORDERED: CALCIUM GLUCONATE 1000 MG/10 ML INJ IV ONE (21:20)
--- NOTE | 2018-11-24 22:28 | RADIOLOGY REPORT (SQ) ---
EXAM DESCRIPTION: CT ABDOMEN PELVIS WITH IV CONTRAST COMPLETED DATE/TME: 11/24/2018 21:20 CLINICAL HISTORY: 53 years, Female, abd pain COMPARISON: 09/07/2017 CT TECHNIQUE: 366 Images stored on PACS. All CT scanners at this facility use dose modulation, iterative reconstruction, and/or weight based dosing when appropriate to reduce radiation dose to as low as reasonably achievable (ALARA). [facility]: Dose Right [facility]: CareDose [facility]: Dose Right [facility]: Teradose 4D [facility]: [employer] LIMITATIONS: None. FINDINGS: Limited evaluation of the lung bases is unremarkable. Subjective wall thickening of the distal esophagus and GE junction with fluid in the distal esophagus. Consider further assessment with endoscopy. The stomach is mildly distended. Fatty infiltrative change to the liver. The spleen, adrenal glands, pancreas, kidneys are unremarkable. Surgical absence of the gallbladder. Moderate atheromatous changes. Large amount stool in the colon. Nondilated fluid-filled loops of small bowel. No discrete transition point. No free air or free fluid. IMPRESSION: Subjective wall thickening of the GE junction with fluid in the distal esophagus. Consider further assessment with endoscopy. The stomach appears mildly distended. Large amount stool in the colon. Nondilated fluid-filled loops of small bowel which may reflect mild ileus. No free air or free fluid. Moderate atheromatous change. TECHNICAL DOCUMENTATION: Quality ID # 436: Final reports with documentation of one or more dose reduction techniques (e.g., Automated exposure control, adjustment of the mA and/or kV according to patient size, use of iterative reconstruction technique) copyright 2010 [employer]- All Rights Reserved
--- NOTE | 2018-11-24 22:28 | ER Document Report ---
ED General - General Chief Complaint: Fall Stated Complaint: FALL Time Seen by Provider: 11/24/18 20:14 Mode of Arrival: Medic Information source: Patient Notes: This is a 53-year-old female with a history of hypothyroidism, GERD who presents to the emergency room after a fall at home. Patient states that her left knee gave out and she fell to the ground. She does state that she is had a history of left knee pain and has had her knee give out on her in the past. She does report generalized weakness over the last several days. She reports left shoulder pain, left rib pain, left lower abdominal pain currently. She denies loss of consciousness. TRAVEL OUTSIDE OF THE [place] IN LAST 30 DAYS: No - HPI Onset: Just prior to arrival Onset/Duration: Sudden Quality of pain: Dull Severity: Moderate Pain Level: 2 Associated symptoms: denies: Chills, Fever, Shortness of breath Exacerbated by: Movement Relieved by: Denies Similar symptoms previously: Yes Recently seen / treated by doctor: No - Related Data Allergies/Adverse Reactions: No Known Allergies Allergy (Verified 05/04/18 13:58) Past Medical History - General Information source: Patient - Social History Smoking Status: Current Some Day Smoker Cigarette use (# per day): Yes - Half a pack per day Chew tobacco use (# tins/day): No Frequency of alcohol use: None Drug Abuse: None Lives with: Family Family History: Reviewed & Not Pertinent Patient has suicidal ideation: No Patient has homicidal ideation: No - Past Medical History Cardiac Medical History: Reports: Hx Heart Attack, Hx Hypertension - Diet controlled Pulmonary Medical History: Denies: Hx Tuberculosis Neurological Medical History: Reports: Hx Seizures - History Endocrine Medical History: Reports: Hx Diabetes Mellitus Type 2 - Diet Controlled, Hx Hypothyroidism Renal/ Medical History: Denies: Hx Peritoneal Dialysis GI Medical History: Reports: Hx Gastroesophageal Reflux Disease, Hx Ulcer Musculoskeletal Medical History: Reports Hx Arthritis Psychiatric Medical History: Reports: Hx Anxiety, Hx Depression - History Past Surgical History: Reports: Hx Appendectomy, Hx Cardiac Catheterization - Stent Placement, Hx Cholecystectomy, Hx Tubal Ligation - Immunizations Hx Diphtheria, Pertussis, Tetanus Vaccination: Yes Hx Pneumococcal Vaccination: 07/17/14 Review of Systems - Review of Systems Constitutional: denies: Chills, Fever EENT: No symptoms reported Cardiovascular: No symptoms reported Respiratory: No symptoms reported Gastrointestinal: No symptoms reported Genitourinary: No symptoms reported Female Genitourinary: No symptoms reported Musculoskeletal: See HPI Skin: No symptoms reported Hematologic/Lymphatic: No symptoms reported Neurological/Psychological: No symptoms reported Physical Exam - Vital signs Vitals: Temp Pulse Resp BP Pulse Ox 97.9 F 83 22 H 118/76 95 11/24/18 19:39 11/24/18 19:39 11/24/18 19:39 11/24/18 19:39 11/24/18 19:39 Notes: Physical exam: GENERAL: Patient is on stretcher with cervical collar in place. HEAD: Atraumatic, normocephalic. EYES: Pupils equal round and reactive to light, extraocular movements intact, sclera anicteric, conjunctiva are normal. ENT: TMs normal, nares patent, oropharynx clear without exudates. Moist mucous membranes. NECK: No cervical spine tenderness. Cervical collar left in place. LUNGS: Breath sounds clear to auscultation bilaterally and equal. No wheezes rales or rhonchi. Chest wall: Patient does have left chest wall tenderness without crepitus. HEART: Regular rate and rhythm without murmurs, rubs or gallops. ABDOMEN: Soft, normoactive bowel sounds. She does have left flank and left l ower quadrant tenderness to palpation. No guarding, no rebound. No masses appreciated. EXTREMITIES: Normal range of motion, no pitting or edema. No clubbing or cyanosis. She has tenderness to the left knee with range of motion which she says is chronic. NEUROLOGICAL: Cranial nerves II through XII grossly intact. Normal speech, moving all extremities. PSYCH: Normal mood, normal affect. SKIN: Warm, Dry, normal turgor, no rashes or lesions noted. Course - Re-evaluation Re-evalutation: 11/24/18 23:38 On reassessment, the patient is alert and oriented x3 and answering questions. She does have a long history of GERD with an ulcer in the past and is followed by GI. I have advised her that the CT scan did show some esophageal thickening and they recommend reevaluation with a GI doctor for a scope. 11/24/18 23:39 - Vital Signs Vital signs: Temp Pulse Resp BP Pulse Ox 97.9 F 83 23 H 118/71 94 11/24/18 19:39 11/24/18 19:39 11/24/18 23:01 11/24/18 23:01 11/24/18 23:01 - Laboratory Result Diagrams: 11/24/18 19:57 11/24/18 19:57 Laboratory results interpreted by me: 11/24/18 11/24/18 19:57 19:57 Hgb 11.0 L Hct 34.1 L MCH 26.8 L RDW 16.6 H Potassium 3.2 L Creatinine 0.49 L Calcium 7.9 L Total Bilirubin < 0.1 L Total Protein 5.4 L Albumin 2.8 L - Diagnostic Test Radiology reviewed: Image reviewed, Reports reviewed - CT of the head shows no acute intra-cranial process. CT of the cervical spine shows no acute fracture. Chest x-ray shows no pneumonia or pneumothorax. - EKG Interpretation by Me Rate: Normal Rhythm: NSR - EKG shows normal sinus rhythm with a ventricular rate of 74, no acute ST-T wave changes Discharge - Discharge Clinical Impression: Contusion to the head, Musculoskeletal pain status post fall Condition: Stable Disposition: HOME, SELF-CARE Additional Instructions: As we discussed, the CT of the head and cervical spine and abdomen and pelvis showed no fractures or internal bleeding. Chest x-ray showed no rib fractures and the lungs were clear. Your labs were relatively good. CT did show some thickening of the esophagus and they recommended you follow-up with your GI doctor for possible endoscopy. Dr. Vargas will be able to see all the tests done today: I would like you to call the office tomorrow for a follow-up appointment. I want you to rest, drink plenty of fluids and take your medicines as prescribed. The pain medicine you're taking prescribed as a narcotic. There are several important things you should know about this medicine: 1. Taking narcotics for too long can lead to physical and mental dependence. Take this medicine only if really needed and in the lowest quantity to achieve pain relief. 2. Do not drink alcohol while on this medicine. Alcohol interacts with narcotics and the combination can be dangerous. 3. Do not drive or operate machinery while on this medicine. 4. Narcotics do cause constipation, so drink plenty of fluids and daily stool softeners. Prescriptions: Oxycodone HCl 5 mg PO Q6HP PRN #10 capsule PRN Reason: Referrals: MAC VARGAS MD [Primary Care Provider] - Follow up tomorrow
[2018-11-24 23:25] VITALS: BP 118/71
--- NOTE | 2018-11-24 23:42 | RADIOLOGY REPORT (SQ) ---
EXAM DESCRIPTION: XR KNEE 3 VIEWS COMPLETED DATE/TME: 11/24/2018 23:08 CLINICAL HISTORY: 53 years, Female, left knee COMPARISON: None. NUMBER OF VIEWS: 3 TECHNIQUE: 3 views left knee LIMITATIONS: None. FINDINGS: Osteopenia. Negative for acute fracture or dislocation. Vascular calcifications. Soft tissues are unremarkable. IMPRESSION: Osteopenia. No acute osseous abnormality copyright 2010 [employer]- All Rights Reserved
== END 2018-11-25 00:01 | disposition home or self-care (01) ==
LOC: ER 19:39
DX: S00.93XA Contusion of unspecified part of head, initial encounter (principal); R53.1 Weakness; R07.81 Pleurodynia; M25.512 Pain in left shoulder; R10.32 Left lower quadrant pain; W18.30XA Fall on same level, unspecified, initial encounter; Y92.009 Unspecified place in unspecified non-institutional (private) residence as the place of occurrence of the external cause; F17.210 Nicotine dependence, cigarettes, uncomplicated; I25.2 Old myocardial infarction; I10 Essential (primary) hypertension; Z90.49 Acquired absence of other specified parts of digestive tract; Z98.51 Tubal ligation status
CPT/HCPCS: 36415; 82962; 83690; 83735; 85025; 85610; 80053; 71045; 73562; 70450; 72125; 74177; J0610; J2270

== ENCOUNTER → 2019-02-27 | Outpatient (CLI) | payer MEDICARE, MEDICAID ==
[2019-02-27 11:23] LABS: ABSOLUTE BASOPHILS # (AUTO) 0.2 10^3/uL (0.0-0.2); ABSOLUTE EOSINOPHILS # (AUTO) 0.1 10^3/uL (0.0-0.6); ABSOLUTE MONOCYTES (AUTO) 0.3 10^3/uL (0.1-1.4); ABSOLUTE NEUT (AUTO) 11.1 10^3/uL (1.7-8.2); BASOPHILS % (AUTO) 1.2 % (0-2); EOSINOPHILS % (AUTO) 0.8 % (0-6); HEMATOCRIT 38.5 % (36.0-47.0); HEMOGLOBIN 12.4 g/dL (12.0-15.5); LYMPHOCYTES % (AUTO) 14.7 % (13-45); MEAN CORPUSCULAR HEMOGLOBIN 27.2 pg (27.0-33.4); MEAN CORPUSCULAR HGB CONC 32.1 g/dL (32.0-36.0); MEAN CORPUSCULAR VOLUME 85 fl (80-97); MONOCYTES % (AUTO) 2.2 % (3-13); PLATELET COUNT 408 10^3/uL (150-450); RED BLOOD COUNT 4.55 10^6/uL (3.72-5.28); SEGMENTED NEUTROPHILS % (AUTO) 81.1 % (42-78); TOTAL CELLS COUNTED % (AUTO) 100 %; WHITE BLOOD COUNT 13.7 10^3/uL (4.0-10.5)
[2019-02-27 11:47] LABS: ALANINE AMINOTRANSFERASE 17 U/L (9-52); ALBUMIN 3.2 g/dL (3.5-5.0); ALKALINE PHOSPHATASE 111 U/L (38-126); ANION GAP 7 (5-19); ASPARTATE AMINO TRANSFERASE 14 U/L (14-36); BLOOD UREA NITROGEN 12 mg/dL (7-20); C-REACTIVE PROTEIN 7.6 mg/L (<10.0); CALCIUM 8.7 mg/dL (8.4-10.2); CARBON DIOXIDE 23 mmol/L (22-30); CHLORIDE 108 mmol/L (98-107); GLUCOSE 110 mg/dL (75-110); POTASSIUM 3.9 mmol/L (3.6-5.0); SODIUM 137.6 mmol/L (137-145)
[2019-02-27 11:56] LABS: BILIRUBIN,TOTAL < 0.1 mg/dL (0.2-1.3)
[2019-02-27 12:03] LABS: ERYTHROCYTE SEDIMENTATION RATE 20 mm/hr (0-30)
--- NOTE | 2019-02-28 11:31 | XCELERA REPORT ---
[address] [address] Lower Extremity Arterial Evaluation Name: PATY MORLEY Age: 53 yrs Gender: Female : 1965 Patient Status: Preadmit Patient Location: Study Date: 02/27/2019 10:20 AM Procedure: A color flow and duplex scan of the lower extremity arteries was performed bilaterally with velocity and waveform anaylsis. Reason For Study: RT CALF ULCER Ordering Physician: ASHLEIGH ZUNIGA Performed By: Kevin Odom Measurements and Calculations Right Left ORGANIZATIONAL EFFECTIVENESS CONSULTANT PSV 187.6 129.2 cm/sec Prox PFA PSV -78.1 -148.5cm/sec Prox SFA PSV 197.6 120.8 cm/sec Mid SFA PSV -132.0 -142.5cm/sec Dist SFA PSV -99.3 -116.9cm/sec Prox Pop A PSV 84.9 92.1 cm/sec Dist EMILEE PSV 63.2 81.2 cm/sec Mid SOCIAL MEDIA MARKETING SPECIALIST PSV 73.8 cm/sec Dist SOCIAL MEDIA MARKETING SPECIALIST PSV 65.6 89.5 cm/sec Reyes Pedis PSV 64.9 70.7 cm/sec Right Side Arterial Evaluation Normal velocity and triphasic waveforms noted from the Common Femoral artery to the infrageniculate vessels . Ankle Brachial index not obtained due to bandaging. Left Side Arterial Evaluation Normal velocity and triphasic waveforms noted from the Common Femoral artery to the infrageniculate vessels . Ankle Brachial index not obtained due to bandaging. Interpretation Summary No hemodynamically significant lesions in the bilateral lower extremities, on duplex imaging, at rest. : ASHLEIGH ZUNIGA > Marko Alvarado
== END ==
LOC: SP 09:55
PROVIDERS: ATTEND Nurse Practitioner Family
DX: E11.610 Type 2 diabetes mellitus with diabetic neuropathic arthropathy (principal); L97.212 Non-pressure chronic ulcer of right calf with fat layer exposed
CPT/HCPCS: 36415; 80053; 83036; 85025; 85652; 86140; 93925

== ENCOUNTER 2019-03-13 15:51 | Observation (INO) | payer MEDICARE, MEDICAID ==
--- NOTE | 2019-03-13 17:08 | ER Document Report ---
ED Syncope and Near Syncope - General Chief Complaint: Fall Stated Complaint: FALL/SYNCOPE Time Seen by Provider: 03/13/19 16:56 Primary Care Provider: MAC VARGAS MD [Primary Care Provider] - Follow up as needed Mode of Arrival: Wheelchair Information source: Patient Notes: Patient is a 53-year-old female who appears much older than her stated age comes to the emergency room with a complaint of a fall but starts to explain that would cause a fall was a syncopal episode. Patient states that on Wednesday night she was getting up out of bed to go to the bathroom she got into the hallway and then the next thing she knows she woke up on the floor. She had right-sided hip pain and a difficult time moving her leg at all. She states it took about 20 minutes before she could get her way to the couch and she was there all night long. On Wednesday she felt a little bit better again attempted to get up to go to the bathroom when she woke up this time she was near the same spot she had fallen before and she had "wet it herself". Patient admits to having a history of seizures but that is been 30 years ago according to her. She has a history of hxi-yxxzgqt-vekmzvwib diabetes but denies taking medications because she is lost a lot of weight. She also has a history of hypertension but is on medication but she cannot remember the name of. Patient also states that she stopped smoking 2 weeks ago. Her doctor is Dr. Roldan. She denies any history of heart problems. She also states that today she got up after eating lunch and had a near syncopal episode where she got very lightheaded and almost fell again. This time she did not fall but she is afraid that she may have hurt her hip on the last 2 falls. She also states she has a history of being anxious and is on medications that she cannot remember the name. She also has right lower extremity wrapped in Coban and and states that she goes to wound clinic for the past 4 months from sustaining a fall and cutting her leg on a ladder. TRAVEL OUTSIDE OF THE [place] IN LAST 30 DAYS: No - Related Data Allergies/Adverse Reactions: No Known Allergies Allergy (Verified 03/13/19 15:53) Past Medical History - General Information source: Patient - Social History Smoking Status: Current Every Day Smoker Cigarette use (# per day): Yes Chew tobacco use (# tins/day): No Smoking Education Provided: No Frequency of alcohol use: Rare Drug Abuse: None Lives with: Alone Family History: Reviewed & Not Pertinent Patient has suicidal ideation: No Patient has homicidal ideation: No - Past Medical History Cardiac Medical History: Reports: Hx Heart Attack, Hx Hypertension - Diet controlled Pulmonary Medical History: Reports: Hx Asthma Denies: Hx Tuberculosis Neurological Medical History: Reports: Hx Seizures - History Endocrine Medical History: Reports: Hx Diabetes Mellitus Type 2 - Diet Co ntrolled, Hx Hypothyroidism Renal/ Medical History: Denies: Hx Peritoneal Dialysis GI Medical History: Reports: Hx Gastroesophageal Reflux Disease, Hx Ulcer Musculoskeletal Medical History: Reports Hx Arthritis Psychiatric Medical History: Reports: Hx Anxiety, Hx Depression - History Past Surgical History: Reports: Hx Appendectomy, Hx Cardiac Catheterization - Stent Placement, Hx Cholecystectomy, Hx Tubal Ligation - Immunizations Hx Diphtheria, Pertussis, Tetanus Vaccination: Yes Hx Pneumococcal Vaccination: 07/17/14 Review of Systems - Review of Systems Constitutional: No symptoms reported EENT: No symptoms reported Cardiovascular: No symptoms reported Respiratory: No symptoms reported Gastrointestinal: No symptoms reported Genitourinary: No symptoms reported Female Genitourinary: No symptoms reported Musculoskeletal: See HPI, Joint pain, Leg swelling Skin: See HPI, Other - Unable to do physical since patient is wrapped up will need to be looked at. Hematologic/Lymphatic: No symptoms reported Neurological/Psychological: See HPI, Anxiety, Gait changes, Lost consciousness, Other - Syncope -: Yes All other systems reviewed and negative Physical Exam - Vital signs Vitals: Temp Pulse Resp BP Pulse Ox 97.6 F 82 16 117/85 94 03/13/19 15:58 03/13/19 15:58 03/13/19 15:58 03/13/19 15:58 03/13/19 15:58 Interpretation: Normal - Notes Notes: PHYSICAL EXAMINATION: GENERAL: Patient is a somewhat disheveled cachectic appearing 83-year-old female who appears much older than her stated age. She is very anxious on physical examination in her legs keep jiggling up-and-down. HEAD: Atraumatic, normocephalic. EYES: Pupils equal round and reactive to light, extraocular movements intact, conjunctiva are normal.s. NECK: Normal range of motion, supple without lymphadenopathy LUNGS: Breath sounds clear to auscultation bilaterally and equal. No wheezes rales or rhonchi. HEART: Regular rate and rhythm without murmurs ABDOMEN: Soft, nontender, nondistended abdomen. No guarding, no rebound. No masses appreciated. Female : deferred Musculoskeletal: Examination patient's area of concern is her right hip. She has moderate amount of tenderness to palpation on the anterior groin area. She also has very tenderness to palpation on the lateral aspect of the right hip. Physical exam furthermore cannot be completed while patient sitting in wheelchair. Also examination patient's right lower extremity shows her to be somewhat edematous but it is heavily wrapped in gauze and Covan. NEUROLOGICAL: Normal speech, normal gait. Normal sensory, motor exams PSYCH: Anxiety apparent flat affect SKIN: Warm, Dry, normal turgor, no rashes or lesions noted. Course - Vital Signs Vital signs: Temp Pulse Resp BP Pulse Ox 97.6 F 82 16 117/85 94 03/13/19 15:58 03/13/19 15:58 03/13/19 15:58 03/13/19 15:58 03/13/19 15:58 Discharge - Discharge Referrals: MAC VARGAS MD [Primary Care Provider] - Follow up as needed
--- NOTE | 2019-03-13 17:14 | ER Document Report ---
ED Medical Screen (RME) - General Chief Complaint: Fall Stated Complaint: FALL/SYNCOPE Time Seen by Provider: 03/13/19 16:56 Primary Care Provider: MAC VARGAS MD [Primary Care Provider] - Follow up as needed Notes: Patient is a 53-year-old female who appears much older than her stated age comes to the emergency room with a complaint of a fall but starts to explain that would cause a fall was a syncopal episode. Patient states that on Wednesday night she was getting up out of bed to go to the bathroom she got into the hallway and then the next thing she knows she woke up on the floor. She had right-sided hip pain and a difficult time moving her leg at all. She states it took about 20 minutes before she could get her way to the couch and she was there all night long. On Wednesday she felt a little bit better again attempted to get up to go to the bathroom when she woke up this time she was near the same spot she had fallen before and she had "wet it herself". Patient admits to having a history of seizures but that is been 30 years ago according to her. She has a history of bql-rwqhwal-qkvoyfzsk diabetes but denies taking medications because she is lost a lot of weight. She also has a history of hypertension but is on medication but she cannot remember the name of. Patient also states that she stopped smoking 2 weeks ago. Her doctor is Dr. Roldan. She denies any history of heart problems. She also states that today she got up after eating lunch and had a near syncopal episode where she got very lightheaded and almost fell again. This time she did not fall but she is afraid that she may have hurt her hip on the last 2 falls. She also states she has a history of being anxious and is on medications that she cannot remember the name. She also has right lower extremity wrapped in Coban and and states that she goes to wound clinic for the past 4 months from sustaining a fall and cutting her leg on a ladder. TRAVEL OUTSIDE OF THE [place] IN LAST 30 DAYS: No - Related Data TRAVEL OUTSIDE OF THE [place] IN LAST 30 DAYS: No - HPI Quality of pain: Sharp, Stabbing, Throbbing Severity: Moderate Pain Level: 3 Associated Symptoms: Shortness of breath Relieved by: Denies Similar symptoms previously: Yes Recently seen / treated by doctor: No - Related Data Smoking: Less than 1 pack/day Frequency of alcohol use: Rare Drug Abuse: None Allergies/Adverse Reactions: No Known Allergies Allergy (Verified 03/13/19 15:53) Past Medical History - General Information source: Patient - Social History Cigarette use (# per day): Yes - Half-pack Chew tobacco use (# tins/day): No Frequency of alcohol use: None Drug Abuse: None Lives with: Alone Family history: Reviewed & Not Pertinent - Past Medical History Cardiac Medical History: Reports: Hx Heart Attack, Hx Hypertension - Diet controlled Pulmonary Medical History: Reports: Hx Asthma Denies: Hx Tuberculosis Neurological Medical History: Reports: Hx Seizures - History Endocrine Medical History: Reports: Hx Diabetes Mellitus Type 2 - Diet Controlled, Hx Hypothyroidism Renal/ Medical History: Denies: Hx Peritoneal Dialysis GI Medical History: Reports: Hx Gastroesophageal Reflux Disease, Hx Ulcer Musculoskeltal Medical History: Reports Hx Arthritis Psychiatric Medical History: Reports: Hx Anxiety, Hx Depression - History Past Surgical History: Reports: Hx Appendectomy, Hx Cardiac Catheterization - Stent Placement, Hx Cholecystectomy, Hx Tubal Ligation - Immunizations Hx Diphtheria, Pertussis, Tetanus Vaccination: Yes Review of Systems - Review of Systems Constitutional: No symptoms reported EENT: No symptoms reported Cardiovascular: No symptoms reported Respiratory: No symptoms reported Gastrointestinal: No symptoms reported Genitourinary: No symptoms reported Female Genitourinary: No symptoms reported Musculoskeletal: Joint pain Skin: No symptoms reported Hematologic/Lymphatic: No symptoms reported Neurological/Psychological: See HPI, Other - Syncope -: Yes All other systems reviewed and negative Physical Exam - Vital signs Vitals: Temp Pulse Resp BP Pulse Ox 97.6 F 82 16 117/85 94 03/13/19 15:58 03/13/19 15:58 03/13/19 15:58 03/13/19 15:58 03/13/19 15:58 Interpretation: Normal - Notes Notes: PHYSICAL EXAMINATION: GENERAL: Patient is a somewhat disheveled, cachectic 53-year-old female who is in no apparent distress on physical exam today but does appear to be in moderate amount of discomfort. She also appears to be exceptionally anxious and on physical exam by juggling her legs entire examination. HEAD: Atraumatic, normocephalic. ENT: Nares patent, oropharynx clear without exudates. Dry tongue and mucous membranes noted NECK: Normal range of motion, supple without lymphadenopathy LUNGS: Auscultation patient lung finn show she has bilateral breath sounds breath sounds decreased throughout. No rhonchi or wheeze heard on examination. HEART: Regular rate and rhythm without murmurs ABDOMEN: Soft, nontender, nondistended abdomen. No guarding, no rebound. No masses appreciated. Female : deferred Musculoskeletal: Examination patient's area of concern is her right hip and groin area. Physical examination on palpation patient has moderate amount of discomfort and pain to palpation of the right groin area. She also has moderate amount of discomfort and pain to the lateral aspect of the right hip to palpation. Further investigation and physical examination unable to determine at this time because patient is in a wheelchair. Could not detect any shortening or rotation secondary to this. Also noted patient right lower extremity is well wrapped this is with Covan and multiple gauze. Explanation of secondary to going to wound care. There is also need to be further explored during physical examination later time. NEUROLOGICAL: Normal speech, normal gait. Normal sensory, motor exams PSYCH: Obvious anxiousness displayed on physical examination and flat affect. SKIN: Warm, Dry, normal turgor, no rashes or lesions noted. Course - Vital Signs Vital signs: Temp Pulse Resp BP Pulse Ox 97.6 F 82 16 117/85 94 03/13/19 15:58 03/13/19 15:58 03/13/19 15:58 03/13/19 15:58 03/13/19 15:58 Doctor's Discharge - Discharge Referrals: MAC VARGAS MD [Primary Care Provider] - Follow up as needed
--- NOTE | 2019-03-13 17:31 | RADIOLOGY REPORT (SQ) ---
EXAM DESCRIPTION: CHEST 2 VIEWS COMPLETED DATE/TIME: 03/13/2019 5:21 pm REASON FOR STUDY: sob COMPARISON: 11/24/2018 EXAM PARAMETERS: NUMBER OF VIEWS: two views TECHNIQUE: Digital Frontal and Lateral radiographic views of the chest acquired. RADIATION DOSE: NA LIMITATIONS: none FINDINGS: LUNGS AND PLEURA: Stable mild chronic interstitial changes in the lungs. No pneumothorax or pleural effusion. MEDIASTINUM AND HILAR STRUCTURES: No masses or contour abnormalities. HEART AND VASCULAR STRUCTURES: Heart normal size. No evidence for failure. BONES: No acute findings. HARDWARE: None in the chest. OTHER: No other significant finding. IMPRESSION: 1. Stable examination with mild chronic changes in the lungs. No acute pulmonary findi ngs. TECHNICAL DOCUMENTATION: JOB ID: [id number] [employer]- All Rights Reserved Reading location - IP/workstation name: [email or web address]
--- NOTE | 2019-03-13 17:32 | RADIOLOGY REPORT (SQ) ---
EXAM DESCRIPTION: HIP RIGHT AP/LATERAL COMPLETED DATE/TIME: 03/13/2019 5:21 pm REASON FOR STUDY: fall COMPARISON: None. NUMBER OF VIEWS: Two views. TECHNIQUE: AP pelvis and additional frog-leg view of the right hip. LIMITATIONS: None. FINDINGS: MINERALIZATION: Normal. RIGHT HIP: No fracture or dislocation. No worrisome bone lesions. LEFT HIP: No fracture or dislocation. No worrisome bone lesions. PUBIS AND ISCHIUM: No fracture. PELVIS: No fracture. Degenerative changes at the symphysis pubis. SACRUM: No fracture or dislocation. No worrisome bone lesions. LOWER LUMBAR SPINE: No fracture or dislocation. No worrisome bone lesions. No significant disc disea se. SOFT TISSUES: No findings. OTHER: Fine wire surgical sutures in the right hemipelvis. IMPRESSION: 1. No acute osseous findings. TECHNICAL DOCUMENTATION: JOB ID: [id number] [employer]- All Rights Reserved Reading location - IP/workstation name: [email or web address]
[2019-03-13 18:03] LABS: APPEARANCE,URINE CLEAR; BILIRUBIN,URINE NEGATIVE (NEGATIVE); COLOR,URINE STRAW; GLUCOSE, URINE NEGATIVE (NEGATIVE); KETONES,URINE NEGATIVE (NEGATIVE); LEUKOCYTE ESTERASE,URINE NEGATIVE (NEGATIVE); NITRITE,URINE NEGATIVE (NEGATIVE); PROTEIN,URINE NEGATIVE (NEGATIVE); URINE SPECIFIC GRAVITY 1.009; UROBILINOGEN,URINE NEGATIVE mg/dL (<2.0)
[2019-03-13 18:09] LABS: ABSOLUTE BASOPHILS # (AUTO) 0.1 10^3/uL (0.0-0.2); ABSOLUTE EOSINOPHILS # (AUTO) 0.1 10^3/uL (0.0-0.6); ABSOLUTE LYMPHOCYTES (AUTO) 1.3 10^3/uL (0.5-4.7); ABSOLUTE MONOCYTES (AUTO) 0.2 10^3/uL (0.1-1.4); ABSOLUTE NEUT (AUTO) 12.5 10^3/uL (1.7-8.2); BASOPHILS % (AUTO) 0.7 % (0-2); EOSINOPHILS % (AUTO) 0.8 % (0-6); HEMATOCRIT 37.7 % (36.0-47.0); HEMOGLOBIN 12.2 g/dL (12.0-15.5); LYMPHOCYTES % (AUTO) 9.1 % (13-45); MEAN CORPUSCULAR HEMOGLOBIN 27.1 pg (27.0-33.4); MEAN CORPUSCULAR HGB CONC 32.3 g/dL (32.0-36.0); MEAN CORPUSCULAR VOLUME 84 fl (80-97); MONOCYTES % (AUTO) 1.5 % (3-13); PLATELET COUNT 352 10^3/uL (150-450); RED CELL DISTRIBUTION WIDTH 16.3 % (11.5-14.0); SEGMENTED NEUTROPHILS % (AUTO) 87.9 % (42-78); TOTAL CELLS COUNTED % (AUTO) 100 %; WHITE BLOOD COUNT 14.2 10^3/uL (4.0-10.5)
--- NOTE | 2019-03-13 18:12 | RADIOLOGY REPORT (SQ) ---
EXAM DESCRIPTION: CT HEAD WITHOUT COMPLETED DATE/TIME: 03/13/2019 5:54 pm REASON FOR STUDY: syncope COMPARISON: 11/24/2018 TECHNIQUE: Axial images acquired through the brain without intravenous contrast. Images reviewed wi th bone, brain and subdural windows. Images stored on PACS. All CT scanners at this facility use dose modulation, iterative reconstruction, and/or weight based d osing when appropriate to reduce radiation dose to as low as reasonably achievable (ALARA). [facility]: Dose Right [facility]: CareDose [facility]: Dose Right [facility]: Teradose 4D [facility]: [employer] RADIATION DOSE: CT Rad equipment meets quality standard of care and radiation dose reduction techniq ues were employed. CTDIvol: 53.2 mGy. DLP: 2194 mGy-cm. mGy. LIMITATIONS: None. FINDINGS: VENTRICLES: Normal size and contour. CEREBRUM: No masses. No hemorrhage. No midline shift. No evidence for acute infarction. Normal gra y/white matter differentiation. No areas of low density in the white matter. CEREBELLUM: No masses. No hemorrhage. No alteration of density. No evidence for acute infarction. EXTRAAXIAL SPACES: No fluid collections. No masses. ORBITS AND GLOBE: No intra- or extraconal masses. Normal contour of globe without masses. CALVARIUM: No fracture. PARANASAL SINUSES: Mild left maxillary sinus disease. SOFT TISSUES: No mass or hematoma. OTHER: No other significant finding. IMPRESSION: Mild left maxillary sinus disease. No acute intracranial imaging findings. EVIDENCE OF ACUTE STROKE: NO. COMMENT: Quality ID # [id number]: Final reports with documentation of one or more dose reduction techniques (e.g., Automated exposure control, adjustment of the mA and/or kV according to patient size, use of iterative reconstruction technique) TECHNICAL DOCUMENTATION: JOB ID: [id number] [employer]- All Rights Reserved Reading location - IP/workstation name: [email or web address]
[2019-03-13 18:17] LABS: URINE AMPHETAMINES SCREEN NEGATIVE; URINE BARBITURATES SCREEN NEGATIVE; URINE BENZODIAZEPINES SCREEN NEGATIVE; URINE COCAINE SCREEN NEGATIVE; URINE MARIJUANA (THC) SCREEN NEGATIVE; URINE METHADONE SCREEN NEGATIVE; URINE PHENCYCLIDINE SCREEN NEGATIVE
[2019-03-13 18:39] LABS: ALANINE AMINOTRANSFERASE 15 U/L (9-52); ALBUMIN 3.6 g/dL (3.5-5.0); ALKALINE PHOSPHATASE 142 U/L (38-126); ANION GAP 12 (5-19); ASPARTATE AMINO TRANSFERASE 19 U/L (14-36); BILIRUBIN,DIRECT 0.2 mg/dL (0.0-0.4); BILIRUBIN,TOTAL 0.2 mg/dL (0.2-1.3); BLOOD UREA NITROGEN 12 mg/dL (7-20); CALCIUM 8.9 mg/dL (8.4-10.2); CARBON DIOXIDE 24 mmol/L (22-30); CHLORIDE 107 mmol/L (98-107); POTASSIUM 3.9 mmol/L (3.6-5.0); SODIUM 143.3 mmol/L (137-145); TOTAL PROTEIN 6.7 g/dL (6.3-8.2)
[2019-03-13 18:43] LABS: ALCOHOL < 10 mg/dL (NONE DETECTED)
[2019-03-13 18:48] LABS: GLUCOSE 66 mg/dL (75-110)
--- NOTE | 2019-03-13 19:22 | EKG REPORT ---
SEVERITY:- NORMAL ECG - SINUS RHYTHM : Confirmed by: Krunal Jeffrey 13-Mar-2019 19:21:50
[2019-03-13] MEDS ORDERED: ONDANSETRON HCL INJ/PF 4 MG/2 ML SDV IV ONE (22:50)
[2019-03-13] MEDS ORDERED: MORPHINE SULFATE 10 MG/ML INJ IV ONE (22:50)
--- NOTE | 2019-03-13 22:57 | ER Document Report ---
ED General - General Chief Complaint: Fall Stated Complaint: FALL/SYNCOPE Time Seen by Provider: 03/13/19 16:56 Primary Care Provider: MAC VARGAS MD [Primary Care Provider] - Follow up as needed TRAVEL OUTSIDE OF THE [place] IN LAST 30 DAYS: No - HPI Notes: Patient is a 53-year-old female who presents to the emergency department. She was initially here complaining of pain in her right hip after a fall. On further questioning the patient had a syncopal episode. She states Wednesday night and into Wednesday she was walking to the bathroom. She had a syncopal episode. She states she had no preceding symptoms. She fell to the floor. She had sniffing and pain in her right hip, to the point that her took her nearly 30 minutes to get up off the floor. She states she spent the most of the rest of the next day on her couch. She was able to slowly get to the bathroom into the kitchen. He states that since then she has had one further syncopal episode and another near syncopal episode. She states that while to seem to go black. Again she denies any preceding dizziness, chest pain, difficulty breathing with this. She does have a history of coronary artery disease, sees a wood pole treater in [place]. She complains of continued pain in her right hip area that she rates a 5 out of 5. No numbness. She denies hitting her head with these falls to her knowledge. - Related Data Allergies/Adverse Reactions: No Known Allergies Allergy (Verified 03/13/19 15:53) Past Medical History - General Information source: Patient - Social History Smoking Status: Current Every Day Smoker Cigarette use (# per day): Yes - Half-pack Chew tobacco use (# tins/day): No Frequency of alcohol use: None Drug Abuse: None Lives with: Alone Family History: Reviewed & Not Pertinent Patient has suicidal ideation: No Patient has homicidal ideation: No - Past Medical History Cardiac Medical History: Reports: Hx Coronary Artery Disease, Hx Heart Attack, Hx Hypertension - Diet controlled Pulmonary Medical History: Reports: Hx Asthma Denies: Hx Tuberculosis Neurological Medical History: Reports: Hx Seizures - History Endocrine Medical History: Reports: Hx Diabetes Mellitus Type 2 - Diet Controlled, Hx Hypothyroidism Renal/ Medical History: Denies: Hx Peritoneal Dialysis GI Medical History: Reports: Hx Gastroesophageal Reflux Disease, Hx Ulcer Musculoskeletal Medical History: Reports Hx Arthritis Psychiatric Medical History: Reports: Hx Anxiety, Hx Depression - History Past Surgical History: Reports: Hx Appendectomy, Hx Cardiac Catheterization - Stent Placement, Hx Cholecystectomy, Hx Tubal Ligation - Immunizations Hx Diphtheria, Pertussis, Tetanus Vaccination: Yes Hx Pneumococcal Vaccination: 07/17/14 Review of Systems - Review of Systems Constitutional: See HPI EENT: No symptoms reported Cardiovascular: See HPI Respiratory: No symptoms reported Gastrointestinal: No symptoms reported Genitourinary: No symptoms reported Musculoskeletal: No symptoms reported Skin: No symptoms reported Neurological/Psychological: No symptoms reported Physical Exam - Vital signs Vitals: Temp Pulse Resp BP Pulse Ox 97.6 F 82 16 117/85 94 03/13/19 15:58 03/13/19 15:58 03/13/19 15:58 03/13/19 15:58 03/13/19 15:58 - Notes Notes: 53-year-old female appears older than her stated age, no acute distress. Vital signs reviewed, please refer to chart. Patient is normocephalic, atraumatic. Pupils equal round, reactive to light. Neck is supple without meningismus. Heart is regular rate and rhythm. Lungs are clear to auscultation bilaterally. Abdomen is soft, nontender, normoactive bowel sounds throughout. Extremities without cyanosis, clubbing, edema. Peripheral pulses are equal. Skin is warm and dry. Examination of the right lower extremity is no obvious deformity. She is tender to palpation over the right ASIS. She has full range of motion of the hip both actively passively, without pain. Neurovascular intact distally. Patient is awake and alert, oriented x3. Cranial nerves II through XII are boni sly intact without focal neurological deficits. Strength is plus 5 out of 5 bilateral upper and lower extremities. Sensation is intact. Intact [id number], rapid alternating movements, [id number]. Course - Re-evaluation Re-evalutation: 03/13/19 22:55 Patient presents to the emergency department for evaluation. She is a 53-year-old female with multiple medical issues. She presents with syncope. She lives alone. Her work appears essentially unremarkable, including CT scan of the head, chest x-ray, hip x-ray. Her vitals remained stable throughout the course of her stay. Orthostatic vital signs were unremarkable. Her cardiac enzymes are negative. I am however, concerned about the possibility of an arrhythmia or other acute issue causing the syncope. Will contact Dr. Knight for admission. - Vital Signs Vital signs: Temp Pulse Resp BP Pulse Ox 97.6 F 82 16 118/74 94 03/13/19 15:58 03/13/19 15:58 03/13/19 15:58 03/13/19 19:09 03/13/19 15:58 - Laboratory Result Diagrams: 03/13/19 17:28 03/13/19 17:28 Laboratory results interpreted by me: 03/13/19 03/13/19 17:28 17:28 WBC 14.2 H RDW 16.3 H Seg Neutrophils % 87.9 H Lymphocytes % 9.1 L Monocytes % 1.5 L Absolute Neutrophils 12.5 H Glucose 66 L Alkaline Phosphatase 142 H - Diagnostic Test Radiology reviewed: Reports reviewed - Negative head CT, pelvis x-ray, chest x- ray - EKG Interpretation by Me Additional EKG results interpreted by me: 03/13/19 22:56 Sinus mechanism with a rate of 73 bpm. Normal axis and intervals, no acute ST changes concerning for ischemia or infarction. Discharge - Discharge Clinical Impression: Syncope and collapse Condition: Stable Disposition: ADMITTED OBSERVATION Admitting Provider: Eugene (Hospitalist) Unit Admitted: Telemetry Referrals: MAC VARGAS MD [Primary Care Provider] - Follow up as needed
[2019-03-13] MEDS ORDERED: GLUCAGON,HUMAN RECOMB 1 MG INJ IM PRN (23:22)
[2019-03-13] MEDS ORDERED: ACETAMINOPHEN 325 MG TABLET PO PRN (23:22)
[2019-03-13] MEDS ORDERED: DEXTROSE 40% GEL 15 GM TUBE PO PRN ×2 (23:22)
[2019-03-13] MEDS ORDERED: MAG HYDROX/AL HYDROX/SIMETH SUSP 30 ML UDCUP PO PRN (23:22)
[2019-03-13] MEDS ORDERED: IPRATROPIUM/ALBUTEROL 0.5-2.5 MG/3 ML AMPUL NEB PRN (23:22)
[2019-03-13] MEDS ORDERED: MAGNESIUM HYDROXIDE SUSP 30 ML UDCUP PO PRN (23:22)
[2019-03-13] MEDS ORDERED: DEXTROSE 50%-WATER 25 GM/50 ML DISP.SYRIN IV PRN ×2 (23:22)
[2019-03-13] MEDS ORDERED: NORMAL SALINE 1000 ML 1,000 ML IV SCH (23:30)
[2019-03-14] MEDS ORDERED: KETOROLAC TROMETHAMINE INJ/PF 30 MG/1 ML SDV IV PRN (00:27)
[2019-03-14] MEDS ORDERED: ALPRAZOLAM 0.25 MG TABLET PO PRN (01:53)
--- NOTE | 2019-03-14 01:53 | PDOC H&P ---
History of Present Illness Admission Date/PCP: 03/13/19 23:31 MAC VARGAS Patient complains of: fall History of Present Illness: PATY MORLEY is a 53 year old female with a past medical history of tobacco, COPD, diet-controlled diabetes, diabetic neuropathy with right leg ulcer, coronary artery disease, anxiety and insomnia. She presents after several falls with loss of consciousness over the last 3 days that occur suddenly upon standing. She complains of hypoglycemia in the 60s to 80s, brief loss of consciousness after falling with urinary incontinence and repeated injury to her right hip. Patient denies head injury, recent change of medications but the only medication she can recall are Xanax and trazodone. In the emergency room she is found to have mild leukocytosis without fever and an otherwise unremarkable work-up with negative imaging of the hip. There is no evidence of limb injury or tongue biting. Orthostatic blood pressures are negative yet she is referred to the hospitalist for admission. Past Medical History Cardiac Medical History: Reports: Coronary Artery Disease, Myocardial Infarction , Hypertension - Diet controlled Pulmonary Medical History: Reports: Asthma, Chronic Obstructive Pulmonary Disease (COPD) Denies: Tuberculosis Neurological Medical History: Reports: Seizures - History Endocrine Medical History: Reports: Diabetes Mellitus Type 2 - Diet Controlled, Hypothyroidism GI Medical History: Reports: Gastroesophageal Reflux Disease Musculoskeltal Medical History: Reports: Arthritis Psychiatric Medical History: Reports: Depression - History Past Surgical History Past Surgical History: Reports: Appendectomy, Cardiac Catheterization - Stent Placement, Cholecystectomy, Tubal Ligation Social History Information Source: Patient, [facility] Records Lives with: Alone Smoking Status: Current Every Day Smoker Frequency of Alcohol Use: None Hx Recreational Drug Use: No Drugs: None Hx Prescription Drug Abuse: No - Advance Directive Resuscitation Status: Full Code Family History Family History: COPD, CVA, Hypertension Parental Family History Reviewed: Yes Children Family History Reviewed: Yes Sibling(s) Family History Reviewed.: Yes Medication/Allergy Home Medications: Alprazolam [Xanax 0.5 mg Tablet] 0.5 mg PO BID PRN 08/22/13 Budesonide/Formoterol Fumarate [Symbicort HFA 160-4.5 mcg Inhaler 6 gm] 2 puff IH BID 08/22/13 Estrogen,Con/M-Progest Acet [Prempro 0.625-2.5 mg Tablet] 0.65 mg PO QHS 06/27 Lansoprazole [Prevacid 30 mg Odt Tablet] 30 mg PO ACBRKFST 08/22/13 Levothyroxine Sodium [Synthroid 0.05 mg Tablet] 50 mcg PO DAILY 08/22/13 Metoclopramide HCl [Reglan 10 mg Tablet] 10 mg PO ACHS 08/22/13 Oxycodone HCl/Acetaminophen [Percocet 10-325 mg Tablet] 1 each PO Q4HP PRN #30 07/17/14 Amox Tr/Potassium Clavulanate [Augmentin 875-125 Tablet] 1 tab PO BID #20 tablet 04/10/17 Hydrocodone/Acetaminophen [Hydrocodon-Acetaminophen 5-325] 1 each PO Q6 #20 tablet 04/10/17 Oxycodone HCl 5 mg PO Q6HP PRN #10 capsule 11/24/18 Allergies/Adverse Reactions: No Known Allergies Allergy (Verified 03/13/19 15:53) Review of Systems Constitutional: ABSENT: chills, fever(s), headache(s), weight gain, weight loss Eyes: ABSENT: visual disturbances Ears: ABSENT: hearing changes Cardiovascular: ABSENT: chest pain, dyspnea on exertion, edema, orthropnea, palpitations Respiratory: ABSENT: cough, hemoptysis Gastrointestinal: ABSENT: abdominal pain, constipation, diarrhea, hematemesis, hematochezia, nausea, vomiting Genitourinary: ABSENT: dysuria, hematuria Musculoskeletal: ABSENT: joint swelling Integumentary: ABSENT: rash, wounds Neurological: ABSENT: abnormal gait, abnormal speech, confusion, dizziness, focal weakness, syncope Psychiatric: ABSENT: anxiety, depression, homidical ideation, suicidal ideation Endocrine: ABSENT: cold intolerance, heat intolerance, polydipsia, polyuria Hematologic/Lymphatic: ABSENT: easy bleeding, easy bruising Physical Exam Vital Signs: Temp Pulse Resp BP Pulse Ox 97.6 F 82 16 118/74 96 03/13/19 15:58 03/13/19 15:58 03/13/19 15:58 03/13/19 19:09 03/13/19 23:10 Intake & Output 03/12/19 03/13/19 03/14/19 11:59 11:59 11:59 Weight 54.7 kg General appearance: PRESENT: no acute distress, cooperative, well-developed, well-nourished, other - Appears chronically ill and older than stated age Head exam: PRESENT: atraumatic, normocephalic Eye exam: PRESENT: conjunctiva pink, EOMI, PERRLA. ABSENT: scleral icterus Ear exam: PRESENT: normal external ear exam Mouth exam: PRESENT: moist, tongue midline Neck exam: ABSENT: carotid bruit, JVD, lymphadenopathy, thyromegaly Respiratory exam: PRESENT: clear to auscultation ainsley, prolonged expiratory phas. ABSENT: rales, rhonchi, wheezes Cardiovascular exam: PRESENT: RRR. ABSENT: diastolic murmur, rubs, systolic murmur Pulses: PRESENT: normal dorsalis pedis pul Vascular exam: PRESENT: normal capillary refill GI/Abdominal exam: PRESENT: normal bowel sounds, soft. ABSENT: distended, guarding, mass, organolmegaly, rebound, tenderness Rectal exam: PRESENT: deferred Extremities exam: PRESENT: full ROM. ABSENT: calf tenderness, clubbing, pedal edema Neurological exam: PRESENT: alert, awake, oriented to person, oriented to place, oriented to time, oriented to situation, CN II-XII grossly intact. ABSENT: motor sensory deficit Psychiatric exam: PRESENT: appropriate affect, normal mood. ABSENT: homicidal ideation, suicidal ideation Skin exam: PRESENT: dry, intact, warm. ABSENT: cyanosis, rash Results Laboratory Results: 03/13/19 17:28 03/13/19 17:28 03/13/19 03/13/19 03/13/19 17:28 17:28 17:28 WBC 14.2 H RBC 4.50 Hgb 12.2 Hct 37.7 MCV 84 MCH 27.1 MCHC 32.3 RDW 16.3 H Plt Count 352 Seg Neutrophils % 87.9 H Lymphocytes % 9.1 L Monocytes % 1.5 L Eosinophils % 0.8 Basophils % 0.7 Absolute Neutrophils 12.5 H Absolute Lymphocytes 1.3 Absolute Monocytes 0.2 Absolute Eosinophils 0.1 Absolute Basophils 0.1 Sodium 143.3 Potassium 3.9 Chloride 107 Carbon Dioxide 24 Anion Gap 12 BUN 12 Creatinine 0.75 Est GFR ( Amer) > 60 Est GFR (Non-Af Amer) > 60 Glucose 66 L Calcium 8.9 Magnesium 2.3 Total Bilirubin 0.2 AST 19 ALT 15 Alkaline Phosphatase 142 H Total Protein 6.7 Albumin 3.6 Urine Color Urine Appearance Urine pH Ur Specific [place] Urine Protein Urine Glucose (UA) Urine Ketones Urine Blood Urine Nitrite Ur Leukocyte Esterase Urine WBC (Auto) 03/13/19 17:52 WBC RBC Hgb Hct MCV MCH MCHC RDW Plt Count Seg Neutrophils % Lymphocytes % Monocytes % Eosinophils % Basophils % Absolute Neutrophils Absolute Lymphocytes Absolute Monocytes Absolute Eosinophils Absolute Basophils Sodium Potassium Chloride Carbon Dioxide Anion Gap BUN Creatinine Est GFR ( Amer) Est GFR (Non-Af Amer) Glucose Calcium Magnesium Total Bilirubin AST ALT Alkaline Phosphatase Total Protein Albumin Urine Color STRAW Urine Appearance CLEAR Urine pH 6.0 Ur Specific [place] 1.009 Urine Protein NEGATIVE Urine Glucose (UA) NEGATIVE Urine Ketones NEGATIVE Urine Blood NEGATIVE Urine Nitrite NEGATIVE Ur Leukocyte Esterase NEGATIVE Urine WBC (Auto) 0 03/13/19 03/13/19 17:28 17:28 Creatine Kinase 129 Troponin I < 0.012 Impressions: Head CT 03/13/19 16:58 IMPRESSION: Mild left maxillary sinus disease. No acute intracranial imaging findings. EVIDENCE OF ACUTE STROKE: NO. Hip/Pelvis X-Ray 03/13/19 16:59 IMPRESSION: 1. No acute osseous findings. Chest X-Ray 03/13/19 17:00 IMPRESSION: 1. Stable examination with mild chronic changes in the lungs. No acute pulmonary findings. Assessment and Plan - Diagnosis (1) Syncope and collapse Is this a current diagnosis for this admission?: Yes Plan: Not preceded by dizziness or resulting in evidence of injury, concern for possible polypharmacy or hypoglycemic event. Continue Accu-Cheks, and te lemetry observation, consider ambulatory Holter monitor (2) Hypoglycemia Is this a current diagnosis for this admission?: Yes Plan: Accu-Cheks q. before meals follow-up A1c (3) Anxiety Is this a current diagnosis for this admission?: Yes Plan: Limit benzodiazepine given concern of unclear syncopal episodes (4) Coronary artery disease Is this a current diagnosis for this admission?: Yes Plan: Serial cardiac enzymes. - Time Time Spent with patient: 35 or more minutes
[2019-03-14] MEDS ORDERED: TRAZODONE HCL 50 MG TABLET PO ONE (02:00)
[2019-03-14 02:40] LABS: ABSOLUTE BASOPHILS # (AUTO) 0.1 10^3/uL (0.0-0.2); ABSOLUTE EOSINOPHILS # (AUTO) 0.1 10^3/uL (0.0-0.6); ABSOLUTE LYMPHOCYTES (AUTO) 1.9 10^3/uL (0.5-4.7); ABSOLUTE MONOCYTES (AUTO) 0.3 10^3/uL (0.1-1.4); ABSOLUTE NEUT (AUTO) 6.2 10^3/uL (1.7-8.2); BASOPHILS % (AUTO) 0.9 % (0-2); EOSINOPHILS % (AUTO) 1.6 % (0-6); HEMATOCRIT 38.6 % (36.0-47.0); HEMOGLOBIN 12.4 g/dL (12.0-15.5); LYMPHOCYTES % (AUTO) 21.7 % (13-45); MEAN CORPUSCULAR HEMOGLOBIN 26.7 pg (27.0-33.4); MEAN CORPUSCULAR HGB CONC 32.1 g/dL (32.0-36.0); MEAN CORPUSCULAR VOLUME 83 fl (80-97); MONOCYTES % (AUTO) 3.2 % (3-13); PLATELET COUNT 329 10^3/uL (150-450); RED BLOOD COUNT 4.63 10^6/uL (3.72-5.28); RED CELL DISTRIBUTION WIDTH 16.4 % (11.5-14.0); SEGMENTED NEUTROPHILS % (AUTO) 72.6 % (42-78); TOTAL CELLS COUNTED % (AUTO) 100 %; WHITE BLOOD COUNT 8.6 10^3/uL (4.0-10.5)
[2019-03-14 03:20] LABS: ANION GAP 16 (5-19); BLOOD UREA NITROGEN 13 mg/dL (7-20); CARBON DIOXIDE 17 mmol/L (22-30); CHLORIDE 117 mmol/L (98-107); GLUCOSE 77 mg/dL (75-110); POTASSIUM 4.3 mmol/L (3.6-5.0); SODIUM 150.2 mmol/L (137-145)
[2019-03-14 03:34] LABS: CREATINE KINASE MB 0.94 ng/mL (<4.55)
[2019-03-14 03:35] LABS: TROPONIN I < 0.012 ng/mL
[2019-03-14] MEDS: HEPARIN SOD (PORCINE) 5,000 UNIT/ML 1 ML SYRINGE SUBCUT SCH ×2 (05:32→15:14)
[2019-03-14] MEDS: DOCUSATE SODIUM 100 MG CAPSULE PO SCH ×2 (09:28→18:57)
[2019-03-14 10:06] LABS: CREATINE KINASE MB 1.04 ng/mL (<4.55)
[2019-03-14 10:13] LABS: TROPONIN I < 0.012 ng/mL
[2019-03-14] MEDS ORDERED: ALBUTEROL SULFATE HFA (90 MCG/PUFF) 8 GM MDI (1 MDI/ER DISP) IH PRN (14:54)
[2019-03-14] MEDS ORDERED: (PENDING PHARMACY ID) (Estradiol [Estradiol] 1 MG) PO SCH (15:00)
[2019-03-14] MEDS ORDERED: ALBUTEROL SULFATE HFA (90 MCG/PUFF) 200 PUFF/8.5 GM MDI IH PRN (15:06)
[2019-03-14 15:26] LABS: CREATINE KINASE MB 0.72 ng/mL (<4.55)
[2019-03-14 15:30] LABS: TROPONIN I < 0.012 ng/mL
[2019-03-14] MEDS ORDERED: ESCITALOPRAM OXALATE 10 MG TABLET PO SCH (15:30)
[2019-03-14] MEDS ORDERED: ATORVASTATIN CALCIUM 10 MG TABLET PO SCH (15:30)
[2019-03-14] MEDS ORDERED: FUROSEMIDE 20 MG TABLET PO SCH (15:30)
[2019-03-14] MEDS ORDERED: LEVOTHYROXINE SODIUM 0.05 MG TABLET PO SCH (15:30)
[2019-03-14] MEDS ORDERED: LOSARTAN POTASSIUM 25 MG TABLET PO SCH (15:30)
[2019-03-14] MEDS ORDERED: ASPIRIN 81 MG TABLET, ENT COATED PO SCH (15:30)
[2019-03-14] MEDS ORDERED: FLUTICASONE/VILANTEROL 200-25 MCG/DOSE IH SCH (16:30)
[2019-03-14 17:48] VITALS: BP 121/71
[2019-03-14] MEDS ORDERED: PANTOPRAZOLE SODIUM 40 MG TABLET.DR PO SCH (18:00)
[2019-03-14] MEDS ORDERED: SUCRALFATE 1 GM TABLET PO SCH (18:00)
[2019-03-14] MEDS ORDERED: METOCLOPRAMIDE HCL 10 MG TABLET PO SCH (18:00)
--- NOTE | 2019-03-14 21:19 | PDOC PROGRESS REPORT ---
Subjective Progress Note for:: 03/14/19 Subjective:: 53 y.o. F with a H Coronary Artery Disease, Myocardial Infarction, Hypertension - Diet controlled, Asthma, Chronic Obstructive Pulmonary Disease (COPD), Seizures - History, Diabetes Mellitus Type 2 - Diet Controlled, Hypothyroidism, Gastroesophageal Reflux Disease, arthritis and depression. She was admitted to [facility] for syncope. The patient was seen this morning on rounds. She is sitting up in bed, alert & oriented x 3, able to answer all questions appropriately. The patient states she believes she is fainting because she 'doesn't eat enough.' The patient states she only eats once a day. I explained to the patient other possible causes could be polypharmacy (she currently takes trazadone, xanax and percocet), orthostatic hypotension or a cardiac arrythmia. Plan to ambulate patient and assess ambulation/VS in response to exertion. Additionally, discussed patient's case with Dr. Giraldo who agreed that the patient would require a 30 day outpatient service or work dispatcher and possible tilt table. He states the patient does not need a stress test at this time. Currently, trazadone and percocet remain on hold. Likely discharge in 24 hours Reason For Visit: FALL Physical Exam Vital Signs: Temp Pulse Resp BP Pulse Ox 98.1 F 68 18 121/71 93 03/14/19 17:46 03/14/19 17:46 03/14/19 17:46 03/14/19 17:46 03/14/19 17:46 Intake & Output 03/13/19 03/14/19 03/15/19 06:59 06:59 06:59 Intake Total 525 Output Total 400 Balance -400 525 Weight 71.2 kg General appearance: PRESENT: no acute distress, well-developed, well-nourished Eye exam: PRESENT: conjunctiva pink, PERRLA Mouth exam: PRESENT: moist Teeth exam: PRESENT: poor dentation Neck exam: PRESENT: full ROM Respiratory exam: PRESENT: rhonchi, wheezes Cardiovascular exam: PRESENT: RRR Pulses: PRESENT: normal radial pulses, normal dorsalis pedis pul Vascular exam: PRESENT: normal capillary refill GI/Abdominal exam: PRESENT: soft. ABSENT: distended, tenderness Rectal exam: PRESENT: deferred Extremities exam: PRESENT: full ROM. ABSENT: pedal edema Musculoskeletal exam: PRESENT: ambulatory, full ROM Neurological exam: PRESENT: alert, awake, oriented to person, oriented to place, oriented to time, oriented to situation Psychiatric exam: PRESENT: appropriate affect Skin exam: PRESENT: dry, intact, normal color Results Laboratory Results: 03/14/19 02:25 03/14/19 02:25 03/13/19 03/14/19 03/14/19 17:28 02:25 02:25 WBC 8.6 RBC 4.63 Hgb 12.4 Hct 38.6 MCV 83 MCH 26.7 L MCHC 32.1 RDW 16.4 H Plt Count 329 Seg Neutrophils % 72.6 Lymphocytes % 21.7 Monocytes % 3.2 Eosinophils % 1.6 Basophils % 0.9 Absolute Neutrophils 6.2 Absolute Lymphocytes 1.9 Absolute Monocytes 0.3 Absolute Eosinophils 0.1 Absolute Basophils 0.1 Sodium 150.2 H Potassium 4.3 Chloride 117 H Carbon Dioxide 17 L Anion Gap 16 BUN 13 Creatinine 0.76 Est GFR ( Amer) > 60 Est GFR (Non-Af Amer) > 60 Glucose 77 Calcium 10.0 Magnesium 2.3 03/13/19 03/13/19 03/14/19 17:28 17:28 02:25 Creatine Kinase 129 83 CK-MB (CK-2) Troponin I < 0.012 03/14/19 03/14/19 03/14/19 02:25 08:18 08:18 Creatine Kinase 69 CK-MB (CK-2) 0.94 1.04 Troponin I < 0.012 < 0.012 03/14/19 03/14/19 14:25 14:25 Creatine Kinase 56 CK-MB (CK-2) 0.72 Troponin I < 0.012 Impressions: Head CT 03/13/19 16:58 IMPRESSION: Mild left maxillary sinus disease. No acute intracranial imaging findings. EVIDENCE OF ACUTE STROKE: NO. Hip/Pelvis X-Ray 03/13/19 16:59 IMPRESSION: 1. No acute osseous findings. Chest X-Ray 03/13/19 17:00 IMPRESSION: 1. Stable examination with mild chronic changes in the lungs. No acute pulmonary findings. Status: Imported from PACS Assessment and Plan - Diagnosis (1) Syncope and collapse Is this a current diagnosis for this admission?: Yes Plan: Not preceded by dizziness or resulting in evidence of injury Head CT normal Orthostatics done in ED were normal Possible causes include hypoglycemia, polypharmacy or cardiac arrythmia Counseled patient about the importance of eating throughout the day Will reach out to DM educator about obtaining glucometer for patient Trazadone and percocet remain on hold, xanax is PRN Discussed patient's case with Dr Giraldo who recommends outpatient 30 day event monitor as well as tilt table (2) Coronary artery disease Is this a current diagnosis for this admission?: Yes Plan: Serial cardiac enzymes negative EKG shows NSR, no infarction or ischemia Continue home dose ASA and statin (3) Anxiety Is this a current diagnosis for this admission?: Yes Plan: Limit benzodiazepine given concern of unclear syncopal episodes Low dose Xanax is currently PRN (4) Hypoglycemia Is this a current diagnosis for this admission?: Yes Plan: Patient reports hypoglycemia secondary to anorexia States she simply does not have an appetite (when at home but appears to be eating while inpatient) Accu-Cheks ACHS Will trend BG while patient is eating a balanced diet during hospitalization HgbA1c 4.7% Counseled patient regarding importance of eating throughout the day to maintain normal blood glucose - Time Time Spent with patient: 15-24 minutes Medications reviewed and adjusted accordingly: Yes Anticipated discharge: Home Within: within 48 hours - Inpatient Certification Based on my medical assessment, after consideration of the patient's comorbidities, presenting symptoms, or acuity I expect that the services needed warrant INPATIENT care.: Yes I certify that my determination is in accordance with my understanding of Medicare's requirements for reasonable and necessary INPATIENT services [42 CFR 412.3e].: Yes Medical Necessity: Risk of Complication if Not Cared For in Hospital
[2019-03-14] MEDS ORDERED: TRAZODONE HCL 50 MG TABLET PO SCH (22:00)
--- NOTE | 2019-03-16 14:32 | Left Against Medical Advice ---
Against Medical Advice Admission Date/Time: 03/13/19 23:31 Primary Care Provider: MAC VARGAS Date of Patient Emigration: 03/14/19 - Diagnosis: (1) Syncope and collapse Is this a current diagnosis for this admission?: Yes (2) Coronary artery disease Is this a current diagnosis for this admission?: Yes (3) Anxiety Is this a current diagnosis for this admission?: Yes (4) Hypoglycemia Is this a current diagnosis for this admission?: Yes - Summary: Summary: Please see Admission and Progress Notes as well. PATY MORLEY is a 53 F, who LEFT AGAINST MEDICAL ADVICE. The Patient was admitted on 03/13/19 23:31. 53 y.o. F with a H Coronary Artery Disease, Myocardial Infarction, Hypertension - Diet controlled, Asthma, Chronic Obstructive Pulmonary Disease (COPD), Seizures - History, Diabetes Mellitus Type 2 - Diet Controlled, Hypothyroidism, Gastroesophageal Reflux Disease, arthritis and depression. [facility]. The patient stated she believed she was fainting because she 'doesn't eat enough.' The patient stated she only eats once a day. I explained to the patient other possible causes could be polypharmacy (she currently takes trazadone, xanax and percocet), orthostatic hypotension or a cardiac arrythmia. Plan to ambulate patient and assess ambulation/VS in response to exertion. Additionally, discussed patient's case with Dr. Giraldo who agreed that the patient would require a 30 day outpatient monitor and storage bin tender and possible tilt table. He states the patient does not need a stress test at this time. Trazadone and percocet were placed on hold. The patient was upset that she was not receiving her trazadone and percocet. She did not want to complete her syncope workup and left the hospital AMA.
== END 2019-03-14 19:25 | disposition left against medical advice (07) ==
LOC: ER 15:51 → EH 23:31 → 5 03-14 01:38
PROVIDERS: ADMIT Internal Medicine; ATTEND Internal Medicine
DX: R55 Syncope and collapse (principal); I25.10 Atherosclerotic heart disease of native coronary artery without angina pectoris; F41.9 Anxiety disorder, unspecified; E11.649 Type 2 diabetes mellitus with hypoglycemia without coma; I25.2 Old myocardial infarction; Z53.21 Procedure and treatment not carried out due to patient leaving prior to being seen by health care provider; E11.40 Type 2 diabetes mellitus with diabetic neuropathy, unspecified; D72.829 Elevated white blood cell count, unspecified; R32 Unspecified urinary incontinence; M25.551 Pain in right hip; W19.XXXA Unspecified fall, initial encounter; Y92.008 Other place in unspecified non-institutional (private) residence as the place of occurrence of the external cause; E11.622 Type 2 diabetes mellitus with other skin ulcer; L97.919 Non-pressure chronic ulcer of unspecified part of right lower leg with unspecified severity; Z95.5 Presence of coronary angioplasty implant and graft; F17.210 Nicotine dependence, cigarettes, uncomplicated; I10 Essential (primary) hypertension; R64 Cachexia; R10.30 Lower abdominal pain, unspecified; M19.90 Unspecified osteoarthritis, unspecified site; F32.9 Major depressive disorder, single episode, unspecified; J44.9 Chronic obstructive pulmonary disease, unspecified; Z82.3 Family history of stroke; Z90.49 Acquired absence of other specified parts of digestive tract; Z91.81 History of falling; Z86.69 Personal history of other diseases of the nervous system and sense organs; Z60.2 Problems related to living alone; Z79.899 Other long term (current) drug therapy; Z82.49 Family history of ischemic heart disease and other diseases of the circulatory system
CPT/HCPCS: 93005; 99285; 96374; 96375; 36415 ×2; 82553; 82962; 80307 ×2; 82550 ×2; 83735; 85025 ×2; 80048; 80053; 81001; 84484 ×2; 83036; 71046; 73502; 70450; 93010; G0378 ×3; J1644; A9270 ×5; J2270; J2405; J3490 ×2

== ENCOUNTER → 2020-08-05 | Outpatient (CLI) | payer MEDICARE, MEDICAID ==
--- NOTE | 2020-08-05 10:44 | RADIOLOGY REPORT (SQ) ---
EXAM DESCRIPTION: ARTERIAL LOWER EXTREM BILAT IMAGES COMPLETED DATE/TIME: 08/05/2020 10:28 am REASON FOR STUDY: RT CALF ULCER L97.212 NON-PRESSURE CHRONIC ULCER OF RIGHT CALF W FAT LAYER COMPARISON: 02/27/2019 TECHNIQUE: Dynamic and static clark scale and color images acquired of the lower extremity arteries. Additional selected spectral images recorded. ABIs recorded. LIMITATIONS: None. FINDINGS: RIGHT LEG: ABIS: 0.95. INFLOW ARTERIES: Normal, no obstruction evident. FEMORAL ARTERIES:Multiphasic waveforms. Focal elevation of velocities in the proximal SFA. This is s table in consistent with less than 50% narrowing. Common femoral and deep femoral are unremarkable. POPLITEAL ARTERY:Multiphasic waveforms. Normal, no velocity elevation to suggest focal stenosis. Norm al color Doppler evaluation. No aneurysm. PATENT TIBIOPERONEAL TRUNK AND 3 VESSEL RUNOFF: Yes, normal vessels. Limited visualization of the an terior tibial due to overlying dressing. TBI: Not performed. OTHER: There is atherosclerotic change throughout. LEFT LEG: ABIS: 0.93 INFLOW ARTERIES: Normal, no obstruction evident. FEMORAL ARTERIES:Multiphasic waveforms. Normal, no velocity elevation to suggest focal stenosis. Norm al color Doppler evaluation. No aneurysm. POPLITEAL ARTERY:Multiphasic waveforms. Normal, no velocity elevation to suggest focal stenosis. Norm al color Doppler evaluation. No aneurysm. PATENT TIBIOPERONEAL TRUNK AND 3 VESSEL RUNOFF: Yes, normal vessels. TBI: Not performed. OTHER: Atherosclerotic change throughout. IMPRESSION: No hemodynamically significant focal stenosis is identified. Triphasic waveforms throug hout. COMMENT: [facility] NORMAL: Greater than 1.0 MINIMAL DISEASE: 0.9 to 1.0 CLAUDICATION: 0.5 to 0.9 SEVERE ARTERIAL DISEASE: Less than 0.5 [facility] NORMAL: Greater than 1.0 (1.2 If Heavy Calcifications) NORMAL TO MILD ISCHEMIA: 0.8 to 1.0 MODERATE ISCHEMIA: 0.4 to 0.8 SEVERE ISCHEMIA: Less than 0.4 TECHNICAL DOCUMENTATION: JOB ID: [id number] 2010 [employer]- All Rights Reserved Reading location - IP/workstation name: [email or web address]
--- NOTE | 2020-08-05 10:44 | RADIOLOGY REPORT (SQ) ---
EXAM DESCRIPTION: PHYSIO ARTERIAL LTD COMPLETE DATE/TIME: 08/05/2020 10:28 am REASON FOR STUDY: RT CALF ULCER L97.212 NON-PRESSURE CHRONIC ULCER OF RIGHT CALF W FAT LAYER FINDINGS: Please see combined report for performance of procedure and radiologic supervision and int erpretation. IMPRESSION: Please see combined report for performance of procedure and radiologic supervision and i nterpretation. Reading location - IP/workstation name: [email or web address]
== END ==
LOC: SP 08:57
PROVIDERS: ATTEND Nurse Practitioner Family
DX: L97.212 Non-pressure chronic ulcer of right calf with fat layer exposed (principal); I70.201 Unspecified atherosclerosis of native arteries of extremities, right leg
CPT/HCPCS: 93922; 93925